=== PATIENT | female | born 1945 | race Caucasian/White ===

== ENCOUNTER 2017-02-16 10:11 | Day surgery (SDC) | payer OTHER ==
[2017-02-16 09:10] VITALS: BMI 28.3
[2017-02-16] MEDS ORDERED: PROPOFOL 20 ML ONE ×2 (11:17)
[2017-02-16 12:09] VITALS: TEMP 97.5
[2017-02-16 12:48] VITALS: BP 123/60; PULSE 57
--- NOTE | 2017-02-21 11:19 | PATH ---
Surgical Pathology Report Patient Name: ZINA APONTE [facility]. Rec. #: [id number] /Age/Gender: 1945 (Age: 71) / F Account: [id number] Location: ASU-ENDOSCOPY Taken: 02/16/2017 Received: 02/16/2017 Reported: 02/19/2017 Physicians: Sanam Kent M.D. Specimen(s) Received A: BX RECTAL POLYP B: SIGMOID POLYPS C: BX ANASTOMOSIS Clinical History Colon adenoma surveillance Patent right hemicolectomy anastomosis, diverticulosis, polyps Final Diagnosis A. COLON, RECTUM, BIOPSY: HYPERPLASTIC POLYP. B. COLON, SIGMOID, BIOPSY: HYPERPLASTIC POLYP. C. COLON, ANASTOMOSIS, BIOPSY: COLONIC MUCOSA WITH NO PATHOLOGIC CHANGES. NO ADENOMATOUS OR HYPERPLASTIC CHANGES IDENTIFIED. Comment: Also see prior specimens [id number] and [id number]. Electronically Signed Conrad Oliver M.D. Gross Description A. Received in formalin, labeled "biopsy rectal polyp" is a miller, irregular portion of soft tissue measuring 0.1 cm. in greatest dimension. The specimen is submitted in toto in one cassette. B. Received in formalin, labeled "sigmoid polyps" are 4 miller, irregular portions of soft tissue ranging from 0.2-0.4 cm. in greatest dimension. The specimens are submitted in toto in one cassette. C. Received in formalin, labeled "biopsy anastomosis" are 3 miller, irregular portions of soft tissue ranging from 0.3-0.4 cm. in greatest dimension. The specimens are submitted in toto in one cassette. 02/16/201702/16/2017
== END 2017-02-16 14:15 | disposition home or self-care (01) ==
LOC: JASU-ENDO 10:11
PROVIDERS: ATTEND Internal Medicine Gastroenterology
PROC: 0DBP8ZX Excision of Rectum, Via Natural or Artificial Opening Endoscopic, Diagnostic (ICD-10-PCS; 2017-02-16)
PROC: 0DBN8ZX Excision of Sigmoid Colon, Via Natural or Artificial Opening Endoscopic, Diagnostic (ICD-10-PCS; principal; 2017-02-16 11:00)
DX: Z12.11 Encounter for screening for malignant neoplasm of colon (principal); Z85.038 Personal history of other malignant neoplasm of large intestine; K62.1 Rectal polyp; D12.5 Benign neoplasm of sigmoid colon; K57.30 Diverticulosis of large intestine without perforation or abscess without bleeding; K64.8 Other hemorrhoids
CPT/HCPCS: 88305-TC

== ENCOUNTER 2017-09-14 09:59 | Inpatient (IN) | payer OTHER ==
--- NOTE | 2017-09-14 10:49 | PDOC ---
History of Present Illness - General Chief Complaint: Pain Stated Complaint: Abd pain Time Seen by Provider: 09/14/17 10:21 - History of Present Illness Initial Comments: 09/14/17 10:50 71 yo F with h/o HTN, HLD, COPD and cecal obstruction/mass s/p hemicolectomy () who presents with RLQ abdominal pain. Patient reports acute onset RLQ abdominal pain yesterday morning. Pain is sharp, unremitting, worsening, with periumbilical, and right flank radiation. Pain worse with pressure and movement. Denies postprandial pain, or decreased appetitie. Last PO intake this AM at 0830 oatmeal, and orange juice. Denies analgesia use. Denies fevers/chills , N/V, diarrhea/constipation, BPR, hematuria, dysuria, urinary complaints, chest pain, SOB, lightheadedness, weakness. Recent U/S right complex renal cyst 8 mm ( 08/08). Past History - Past Medical History Allergies/Adverse Reactions: Allergies Allergy/AdvReac Type Severity Reaction Status Date / Time Sulfa (Sulfonamide Allergy Verified 09/14/17 10:05 Antibiotics) rosuvastatin calcium AdvReac Intermediate Verified 09/14/17 10:05 [From Crestor] atorvastatin calcium AdvReac Verified 09/14/17 10:05 [From Lipitor] Home Medications: Ambulatory Orders Arformoterol Tartrate [Brovana -] 1 amp NEB BID #60 amp 12/17/15 Lactobacillus Acidophilus [Bacid -] 1 tab PO DAILY #30 tab 12/17/15 Cholecalciferol (Vitamin D3) [D3-2000] 2,000 unit PO DAILY 02/03/16 Prednisone [Deltasone -] 5 mg PO DAILY tablet 02/22/16 Amlodipine Besylate [Norvasc -] 10 mg PO DAILY 02/15/17 Methimazole 2.5 mg PO DAILY 02/15/17 Olmesartan Medoxomil 40 mg PO DAILY 02/15/17 Cancer: Yes (COLON) COPD: Yes HTN: Yes Hypercholesterolemia: Yes Seizures: Yes Thyroid Disease: Yes (HYPER) - Surgical History Abdominal Surgery: Yes (LAPAROSCOPIC RT COLON RESECTION 02/13) Orthopedic Surgery: Yes (L ankle plate/pins inserted) - Suicide/Smoking/Psychosocial Hx Smoking History: Former smoker Have you smoked in the past 12 months: No If you are a former smoker, when did you quit?: 2000 Information on smoking cessation initiated: Yes Hx Alcohol Use: No Drug/Substance Use Hx: No Substance Use Type: None Hx Substance Use Treatment: No Review of Systems - Review of Systems Comments:: 09/14/17 11:03 GENERAL/CONSTITUTIONAL: No fever or chills. No weakness. HEAD, EYES, EARS, NOSE AND THROAT: No change in vision. No ear pain or discharge. No sore throat.- CARDIOVASCULAR: No chest pain or shortness of breath RESPIRATORY: No cough, wheezing, or hemoptysis. GASTROINTESTINAL: + Abdominal pain. No nausea, vomiting, diarrhea or constipation. GENITOURINARY: No dysuria, frequency, or change in urination. MUSCULOSKELETAL: No joint or muscle swelling or pain. No neck or back pain. SKIN: No rash NEUROLOGIC: No headache, vertigo, loss of consciousness, or change in strength/ sensation. ENDOCRINE: No increased thirst. No abnormal weight change HEMATOLOGIC/LYMPHATIC: No anemia, easy bleeding, or history of blood clots. ALLERGIC/IMMUNOLOGIC: No hives or skin allergy. *Physical Exam - Vital Signs Last Vital Signs Temp Pulse Resp BP Pulse Ox 98.1 F 95 H 19 128/77 92 L 09/14/17 10:02 09/14/17 10:02 09/14/17 10:02 09/14/17 10:02 09/14/17 10:02 - Physical Exam Comments: 09/14/17 11:04 GENERAL: Awake, alert, and fully oriented, in no acute distress HEAD: No signs of trauma, normocephalic, atraumatic EYES: PERRLA, EOMI, sclera anicteric, conjunctiva clear ENT: Hearing grossly normal, nares patent, oropharynx clear without exudates. Moist mucosa NECK: Normal ROM, no JVD, or masses LUNGS: No distress, speaks full sentences, clear to auscultation bilaterally HEART: Regular rate and rhythm, normal S1 and S2, no murmurs, rubs or gallops, peripheral pulses normal and equal bilaterally. ABDOMEN: RLQ > periumbilical ttp. + Right CVA ttp. NDS, normoactive bowel sounds. No guarding, no rebound. No masses. EXTREMITIES : Normal inspection, Normal range of motion, no edema. No clubbing or cyanosis. SKIN: Warm, Dry, normal turgor, no rashes or lesions noted. Heart Score/ECG Review - History History: Slightly suspicious - Electrocardiogram EKG: Normal - ST and T Early Repolarization: No Non Specific ST-T Wave changes: No Flattened T Waves: No Prolonged Q-T Interval: No - ECG Impressions Normal ECG: Yes Non-specific ST Elevation: No Ischemic Changes: No Torsades quentin Pointes: No WPW: No ED Treatment Course - LABORATORY CBC & Chemistry Diagram: 09/14/17 11:00 09/14/17 11:00 Medical Decision Making - Medical Decision Making 09/14/17 11:05 71 yo F with h/o HTN, HLD, COPD and cecal obstruction/mass s/p hemicolectomy () who presents with acute onset sharp, unremitting, RLQ abdominal pain with periumbilical, and right flank radiation beginning yesterday morning.Pain worse with pressure and movement. Denies postprandial pain, or decreased appetite. Denies fevers/chills, N/V, diarrhea/constipation, BPR, hematuria, dysuria, urinary complaints, chest pain, SOB, lightheadedness, weakness. Physical exam reveals marked RLQ > periumbilical ttp and R sided CVA ttp. Hemodynamically stable. Patient with suspected appendicitis vs. bowel obstruction. Will also consider nephrolithiasis based on R sided CVA ttp. ED Course: CBC, CMP, Lipase, UA, PT/INR EKG Morphine 2mg, Zofran 4 mg, NS [address] AP W/CON RUQ U/S 09/14/17 12:18 EKG: NSR with absent MIRANDA, STD, or TWI. 09/14/17 12:19 WBC: 20.1 Cr/BUN: 1.1/19 CT AP: Thick walled and irregular anastamosis sight around R hemicolectomy sight. Inflammatory changes present in adjacent mesenteric fat. Inflammatory process vs. malignancy. 09/14/17 14:37 Called and left message for [facility] ( Dr. Dawson) answering service. 09/14/17 15:10 Called and left message for DR. Chris 09/14/17 15:[address] Faust. Will admit to [facility]. Dr. Ayala will come evaluate. *DC/Admit/Observation/Transfer Diagnosis at time of Disposition: Colitis - Referrals Referrals: Jordy Chris MD [Primary Care Provider] - - Patient Instructions - Post Discharge Activity
[2017-09-14] MEDS ORDERED: ONDANSETRON 4 MG/2 ML VIAL IVPUSH ONE (10:52)
[2017-09-14] MEDS ORDERED: SODIUM CHLORIDE 1,000 ML IV STA (10:52)
[2017-09-14] MEDS ORDERED: morphine CARPU-JECT 2 MG/1 ML DISP.SYRIN IVPUSH ONE (10:52)
[2017-09-14] MEDS ORDERED: ONDANSETRON 4 MG/2 ML VIAL ONE (11:03)
[2017-09-14] MEDS ORDERED: morphine SULFATE 4 MG/ML VIAL ONE (11:03)
[2017-09-14 11:49] LABS: BASO % 0.1 % (0-2.0); EOS % 0.2 % (0-4.5); MCH 30.4 pg (25.7-33.7); MCHC 32.8 g/dl (32.0-36.0); MEAN CELL VOLUME 92.7 fl (80-96); MEAN PLT VOLUME 9.6 fl (7.5-11.1); NEUT % 89.8 % (42.8-82.8); PLATELET COUNT 252 K/MM3 (134-434); RDW 13.8 % (11.6-15.6)
[2017-09-14 12:15] LABS: ALBUMIN 4.2 g/dl (3.4-5.0); ALK PHOS 66 U/L (45-117); ANION GAP 9 (8-16); BILIRUBIN,TOTAL 0.9 mg/dL (0.2-1.0); CALCIUM 9.4 mg/dL (8.5-10.1); CO2 26 mmol/L (21-32); CREATININE 1.1 mg/dL (0.55-1.02); GLUCOSE,RANDOM 102 mg/dL (74-106); SGOT/AST 13 U/L (15-37); SGPT/ALT 23 U/L (12-78); TOT PROT 7.5 g/dl (6.4-8.2)
[2017-09-14 12:20] LABS: INR 1.19 (0.82-1.09); PROTHROMBIN TIME (PATIENT) 13.5 SEC (9.98-11.88)
--- NOTE | 2017-09-14 12:24 | PDOC ---
Attending Attestation - Resident Resident Name: Dov Lam - ED Attending Attestation I have performed the following: I have examined & evaluated the patient, The case was reviewed & discussed with the resident, I agree w/resident's findings & plan, Exceptions are as noted - HPI HPI: 09/14/17 12:22 71 F with h/o HTN, HLD, COPD and cecal obstruction/mass s/p hemicolectomy (02/10), gallstones, presenting to ER with R sided abdominal pain x 1 day. Pt states pain began this morning. Was associated with nausea but no vomiting. Denies diarrhea. Last BM was this morning and normal. Denies F/C. Denies CP/ SOB. Denies dysuria. Pt states that she has known gallstones but no intervention was done due to her being symptomatic. - Physicial Exam PE: 09/14/17 12:23 "GENERAL: Awake, alert, and fully oriented, in no acute distress HEAD: No signs of trauma EYES: PERRLA, EOMI, sclera anicteric, conjunctiva clear ENT: Auricles normal inspection, hearing grossly normal, nares patent, oropharynx clear without exudates. Moist mucosa NECK: Nontender, no stepoffs, Normal ROM, supple, no lymphadenopathy, JVD, or masses LUNGS: Breath sounds equal, clear to auscultation bilaterally. No wheezes, and no crackles HEART: Regular rate and rhythm, normal S1 and S2, no murmurs, rubs or gallops ABDOMEN: +RLQ tenderness, + R CVAT, nondistended EXTREMITIES: Normal range of motion, no edema. No clubbing or cyanosis. No cords, erythema, or tenderness NEUROLOGICAL: Cranial nerves II through XII intact. 5/5 strength and sensation in all extremities, Normal speech, normal gait SKIN: Warm, Dry, normal turgor, no rashes or lesions noted. " - Medical Decision Making 09/14/17 12:23 71 F with h/o gallstones, colon CA s/p hemicolectomy, presenting to ER with R sided abdominal pain. Concerning for possible obstructive process, though exam with no distention. Pt also has known h/o gallstones. Possible acute edie. - Labs - RUQ sono - CT abdomen/pelvis
[2017-09-14] MEDS ORDERED: ACETAMINOPHEN 325 MG TABLET (FP) PO PRN (15:33)
--- NOTE | 2017-09-14 15:47 | HP ---
Admitting History and Physical - Primary Care Physician PCP: Jordy Chris - Admission Chief Complaint: I'm hurting History of Present Illness: Ms. Valdes is a very pleasant 71 year old female who comes in with sudden onset abdominal pain. She says she was doing well until last night when she developed sudden onset RLQ abdominal pain. She says it radiates to her back. It is a sharp pain that is worsened with movement. She says at its worst it was a 25/ 10. She says it is constant. It is not exacerbated by eating or drinking and she has a normal appetite. She had a slight amount of nausea but no vomiting. She is having normal bowel movements, her last bowel movement was this morning and it was normal in color and quantity. Aside from the pain she is without complaint. She denies fevers, chills, lightheadedness, dizziness, passing out, chest pain, shortness of breath, diarrhea, constipation, difficulty or pain on urination, or swelling. She has received morphine in the ED and she says her pain is now a 4/10. History Source: Patient Limitations to Obtaining History: No Limitations - Past Medical History Cardiovascular: Yes: HTN, Hyperlipdemia Pulmonary: Yes: COPD, Pneumonia Gastrointestinal: Yes: Constipation, Other (loss appetite) Hepatobiliary: Yes: Cholelithiasis Psych: Yes: Anxiety - Past Surgical History Past Surgical History: Yes: Colectomy (partial, with anastamosis), Tonsillectomy (left malleolar fracture surgery with hardware) - Smoking History Smoking history: Former smoker Have you smoked in the past 12 months: No If you are a former smoker, when did you quit?: 2000 - Alcohol/Substance Use Hx Alcohol Use: No History of Substance Use: reports: None - Social History ADL: Independent Occupation: retired hairdresser History of Recent Travel: No Home Medications - Allergies Allergies/Adverse Reactions: Allergies Allergy/AdvReac Type Severity Reaction Status Date / Time Sulfa (Sulfonamide Allergy Verified 09/14/17 10:05 Antibiotics) rosuvastatin calcium AdvReac Intermediate Verified 09/14/17 10:05 [From Crestor] atorvastatin calcium AdvReac Verified 09/14/17 10:05 [From Lipitor] - Home Medications Home Medications: Ambulatory Orders Arformoterol Tartrate [Brovana -] 1 amp NEB BID #60 amp 12/17/15 Lactobacillus Acidophilus [Bacid -] 1 tab PO DAILY #30 tab 12/17/15 Cholecalciferol (Vitamin D3) [D3-2000] 2,000 unit PO DAILY 02/03/16 Prednisone [Deltasone -] 5 mg PO DAILY tablet 02/22/16 Amlodipine Besylate [Norvasc -] 10 mg PO DAILY 02/15/17 Methimazole 2.5 mg PO DAILY 02/15/17 Olmesartan Medoxomil 40 mg PO DAILY 02/15/17 Family Disease History - Family Disease History Family Disease History: CA: Father ( 81 bladder cancer), Mother (dementia, 71 uterine cancer ), Other: Mother Review of Systems Findings/Remarks: Full review of systems obtained, as per HPI and otherwise negative. Physical Examination Vital Signs: Vital Signs Temperature 36.7 C 09/14/17 10:02 Pulse Rate 95 H 09/14/17 10:02 Respiratory Rate 19 09/14/17 10:02 Blood Pressure 128/77 09/14/17 10:02 O2 Sat by Pulse Oximetry (%) 92 L 09/14/17 10:02 Constitutional: Yes: Well Nourished, No Distress, Calm Eyes: Yes: Conjunctiva Clear, EOM Intact, PERRL HENT: Yes: Atraumatic, Normocephalic Cardiovascular: Yes: Regular Rate and Rhythm, Other. No: Gallop, Murmur, Rub Respiratory: Yes: Regular. No: Rales, Rhonchi, Wheezes Gastrointestinal: Yes: Soft, Hypoactive Bowel Sounds, Tenderness (RLQ). No: Distention Extremities: Yes: WNL Edema: No Labs: CBC, BMP 09/14/17 11:00 09/14/17 11:00 Imaging - Results Cat Scan: Report Reviewed, Image Reviewed Ultrasound: Report Reviewed Problem List - Problems (1) Chronic inflammation of colon Assessment/Plan: -patient presents with acute abdominal pain onset and found to have inflammation at anastomosis site -concerning for recurrence of cancer, however other inflammatory process is possible as well -consult GI and surgery -not obstructed but patient at high risk for obstruction, needs inpatient admission and evaluation -clear liquid diet -stool softeners Code(s): K52.9 - NONINFECTIVE GASTROENTERITIS AND COLITIS, UNSPECIFIED (2) Colitis Assessment/Plan: -with inflammation and leukocytosis -while no other signs of sepsis, concerning since presentation of pain is acute -admit to the hospital -IVF -clear liquid diet -check blood cultures -levaquin and flagyl -monitor leukocytosis -patient is on chronic low dose steroids but would not expect leukocytosis of 20 ,000 Code(s): K52.9 - NONINFECTIVE GASTROENTERITIS AND COLITIS, UNSPECIFIED (3) COPD (chronic obstructive pulmonary disease) Assessment/Plan: -not in exacerbation -continue home regimen including low dose prednisone and brovana Code(s): J44.9 - CHRONIC OBSTRUCTIVE PULMONARY DISEASE, UNSPECIFIED Qualifiers: COPD type: chronic bronchitis (4) Hypertension Assessment/Plan: -continue diovan and norvasc -controlled Code(s): I10 - ESSENTIAL (PRIMARY) HYPERTENSION (5) Hyperthyroidism Assessment/Plan: -continue tapazole -on 2.5mg bid Code(s): E05.90 - THYROTOXICOSIS, UNSP WITHOUT THYROTOXIC CRISIS OR STORM
[2017-09-14] MEDS: SODIUM CHLORIDE 1,000 ML IV SCH (16:04)
[2017-09-14] MEDS: LEVOFLOXACIN 500 MG IVPB 500 MG/100 ML BAG IVPB SCH (16:04)
[2017-09-14] MEDS ORDERED: ARFORMOTEROL TARTRATE 15 MCG/2 ML VIAL NEB SCH ×2 (16:15→22:00)
[2017-09-14] MEDS: METRONIDAZOLE 500 MG PREMIXED 500 MG/100 ML MG IVPB SCH (17:00)
[2017-09-14 18:54] VITALS: BMI 29.2
[2017-09-14] MEDS: morphine SULFATE 4 MG/ML VIAL IVPUSH PRN (21:14)
[2017-09-14] MEDS: DOCUSATE SODIUM 100 MG CAPSULE (FP) PO SCH (21:14)
[2017-09-15] MEDS: ARFORMOTEROL TARTRATE 15 MCG/2 ML VIAL NEB SCH ×3 (00:30→23:00)
[2017-09-15] MEDS: METRONIDAZOLE 500 MG PREMIXED 500 MG/100 ML MG IVPB SCH ×2 (02:33→09:15)
[2017-09-15] MEDS: SODIUM CHLORIDE 1,000 ML IV SCH ×2 (05:19→21:09)
[2017-09-15 08:08] LABS: BASO % 0.3 % (0-2.0); EOS % 0.9 % (0-4.5); MCH 30.7 pg (25.7-33.7); MCHC 32.9 g/dl (32.0-36.0); MEAN CELL VOLUME 93.5 fl (80-96); MEAN PLT VOLUME 8.6 fl (7.5-11.1); NEUT % 76.5 % (42.8-82.8); PLATELET COUNT 174 K/MM3 (134-434); RDW 13.8 % (11.6-15.6)
[2017-09-15 08:38] LABS: ANION GAP 7 (8-16); CO2 25 mmol/L (21-32); GLUCOSE,RANDOM 85 mg/dL (74-106); MAGNESIUM 2.3 mg/dL (1.8-2.4); PHOSPHOROUS 2.5 mg/dL (2.5-4.9)
[2017-09-15] MEDS: VALSARTAN 160 MG TABLET (UD) PO SCH (09:15)
[2017-09-15] MEDS: CHOLECALCIFEROL (VITAMIN D3) 1,000 UNIT TABLET (FP) PO SCH (09:16)
[2017-09-15] MEDS: DOCUSATE SODIUM 100 MG CAPSULE (FP) PO SCH ×3 (09:16→21:11)
[2017-09-15] MEDS: LACTOBACILLUS ACIDOPHILUS 1 EACH TAB (FP) PO SCH (09:16)
[2017-09-15] MEDS: predniSONE 5 MG TABLET (UD) PO SCH (09:16)
[2017-09-15] MEDS: METHIMAZOLE 5 MG TABLET (FP) PO SCH (09:16)
[2017-09-15] MEDS: morphine SULFATE 4 MG/ML VIAL IVPUSH PRN ×2 (09:17→23:09)
--- NOTE | 2017-09-15 09:47 | PN ---
Progress Note (short form) - Note Progress Note: surgery pt seen and examined yesterday. ct reviewed. history right colectomy for benign disease. now with abd pain and sheri-anastamosis inflammation on ct. no obstruction. no perforation. abd- soft, minimal tenderness Plan- doubt mechanical problem. treat colitis per gi. for poss colonoscopy when better. no acute surgical intervention.
[2017-09-15] MEDS: amLODIPine BESYLATE 10 MG TABLET (FP) PO SCH (10:21)
[2017-09-15] MEDS: LEVOFLOXACIN 500 MG IVPB 500 MG/100 ML BAG IVPB SCH (10:21)
--- NOTE | 2017-09-15 11:18 | CON.GI ---
Consult Consult Specialty:: GI: Dr. Forman covering for Dr. Kent Referred by:: Dr. Faust Reason for Consultation:: Abdominal pain - History of Present Illness Chief Complaint: "I was having pain from yesterday" History of Present Illness: 71F admitted to [facility] for evaluation of abdominal pain. She states being in [place] up until two nights ago, when she began to develop sharp right sided abdominal pain that radiated to the right flank. The pain was constant and became progressively more intense through the night. She waited to come to the ER yesterday morning. There was no associated nausea, vomiting, fevers/chills, food fear, rectal bleeding, diarrhea. She denied any similar episodes in the past. In the ER, she was noted to be afebrile with a WBC of 20K ( predominantly neutrophils). A CT scan was performed revealing focal inflammatory changes in the proximal colon at the proximity of the ileocolonic anastamosis, relatively unchanged liver cysts and gallstones without evidence of acute cholecystitis (I reviewed the CT scan with Dr. Omalley this morning) . Ms. Valdes has a history of multiple colon polyps that were discovered during her first colonoscopy in [address] Kent. One of the rectal polyps removed contained a CIS and there was a large 7cm cecal polyp. The large cecal polyp led to Ms. Valdes having a right hemicolectomy and pathology report from the surgery revealed it to be a tubular adenoma without carcinoma. The margins of the surgery were free of adenomatous changes. A follow-up colonoscopy 02/[address] Kent revealed diverticulosis and hyperplastic polyps. Biopsies of the anastamosis were unrevealing. Ms. Valdes currently states that while her pain was initially a "20 out of 10" yesterday, It is a "5-6 out of 10 " today. - History Source History Provided By: Patient, Medical Record - Past Medical History Cardio/Vascular: Yes: HTN, Hyperlipdemia Pulmonary: Yes: COPD, Pneumonia Gastrointestinal: Yes: Constipation, Diverticulosis, Other (Colon polyps, 1 rectal polyp with CIS) Hepatobiliary: Yes: Cholelithiasis Psych: Yes: Anxiety - Past Surgical History Past Surgical History: Yes: Colectomy (right hemocolectomy 2016), Tonsillectomy (left malleolar fracture surgery with hardware) Additional Surgical History: left ankle fracture repair - Alcohol/Substance Use Hx Alcohol Use: Yes (Rare) History of Substance Use: reports: None - Smoking History Smoking history: Former smoker Have you smoked in the past 12 months: No If you are a former smoker, when did you quit?: 2000 - Social History Usual Living Arrangement: Other () ADL: Independent Occupation: retired hairdresser [facility] of : [facility] History of Recent Travel: No Home Medications - Allergies Allergies/Adverse Reactions: Allergies Allergy/AdvReac Type Severity Reaction Status Date / Time Sulfa (Sulfonamide Allergy Verified 09/14/17 10:05 Antibiotics) rosuvastatin calcium AdvReac Intermediate Verified 09/14/17 10:05 [From Crestor] atorvastatin calcium AdvReac Verified 09/14/17 10:05 [From Lipitor] - Home Medications Home Medications: Ambulatory Orders Arformoterol Tartrate [Brovana -] 1 amp NEB BID #60 amp 12/17/15 Lactobacillus Acidophilus [Bacid -] 1 tab PO DAILY #30 tab 12/17/15 Cholecalciferol (Vitamin D3) [D3-2000] 2,000 unit PO DAILY 02/03/16 Prednisone [Deltasone -] 5 mg PO DAILY tablet 02/22/16 Amlodipine Besylate [Norvasc -] 10 mg PO DAILY 02/15/17 Methimazole 2.5 mg PO DAILY 02/15/17 Olmesartan Medoxomil 40 mg PO DAILY 02/15/17 Family Disease History - Family Disease History Family Disease History: CA: Father ( 81 bladder cancer), Mother (dementia, 71 uterine cancer ), Other: Mother Other Family History: No siblings, No children. No family history of colorectal cancer or other GI malignancy Review of Systems - Review of Systems Constitutional: denies: Chills, Fever, Unintentional Wgt. Loss Cardiovascular: denies: Chest Pain Respiratory: reports: SOB (baseline at times) Gastrointestinal: reports: Abdominal Pain, Constipation (Chronic). denies: Diarrhea, Melena, Rectal Bleeding, Vomiting, Vomiting Blood Physical Exam-GI Vital Signs: Vital Signs Temperature 98.5 F 09/15/17 05:00 Pulse Rate 66 09/15/17 05:00 Respiratory Rate 18 09/15/17 05:00 Blood Pressure 120/62 09/15/17 05:00 O2 Sat by Pulse Oximetry (%) 97 09/14/17 21:00 Constitutional: Yes: Calm Eyes: Yes: Sclera Icterus Cardiovascular: Yes: Regular Rate and Rhythm. No: Murmur Respiratory: Yes: CTA Bilaterally Gastrointestinal Inspection: Yes: Scars (periumbilical surgical scar) ...Auscultate: Yes: Normoactive Bowel Sounds ...Palpate: Yes: Guarding (voluntary), Tenderness (TTP throughout right abdomen. More focused in mid right abdomen). No: Hepatomegaly, Splenomegaly ...Percussion: No: Tympanitic ...Rectal Exam: Yes: Guaiac Negative (Light brown stool in rectal vault, guaiac negative) Edema: No (No LE edema) Neurological: Yes: Alert, Oriented Labs: CBC, BMP 09/15/17 07:15 09/15/17 07:15 INR, PTT INR 1.19 (0.82-1.09) H 09/14/17 11:00 Hepatic Panel Total Bilirubin 0.9 mg/dL (0.2-1.0) 09/14/17 11:00 AST 13 U/L (15-37) L D 09/14/17 11:00 ALT 23 U/L (12-78) D 09/14/17 11:00 Alkaline Phosphatase 66 U/L (45-117) 09/14/17 11:00 Albumin 4.2 g/dl (3.4-5.0) 09/14/17 11:00 Imaging - Results Cat Scan: Report Reviewed, Image Reviewed (Reviewed w/ Dr. Omalley this morning.) Ultrasound: Report Reviewed Problem List - Problems (1) Colitis Assessment/Plan: Acute progressive right sided abdominal pain: With focal CT scan findings and acuity of onset, along with previous colonoscopy findings and response to conservative maganagement/IV Abx, the possibility of an acute diverticulitis would need to be higher in the differential. Odd presentation for ischemic colitis and there was no malignancy noted on initial hemicolectomy. Recent colonoscopy revealed a normal appearing anstamosis as well. Plan for now would be: NPO Continuing IV Abx. When pain subsides, would advance to clear liquids in AM and will need outpatient follow-up with Dr. Kent as an outpatient to discuss possible follow-up colonoscopy Daily labs, CBC/BMP/CRP Appreciate surgical input Code(s): K52.9 - NONINFECTIVE GASTROENTERITIS AND COLITIS, UNSPECIFIED
[2017-09-15] MEDS: POLYETHYLENE GLYCOL 3350 119 GM BTL PO SCH (11:24)
--- NOTE | 2017-09-15 13:33 | PN ---
Progress Note, Physician Chief Complaint: Less abdominal pain denies any nausea or vomiting History of Present Illness: 71 yrs old F with H/O COPD, Hyperthyroidism, Rt Hemicolectomy, HTN present with acute collitis with elevated TWBC , evaluated by GI on IV abx. - Current Medication List Current Medications: Active Medications Acetaminophen (Tylenol -) 650 mg PO Q4H PRN PRN Reason: FEVER OR PAIN Amlodipine Besylate (Norvasc -) 10 mg PO DAILY [facility] Last Admin: 09/15/17 10:21 Dose: 10 mg Arformoterol Tartrate (Brovana (Restricted To Pulmonology/Resp) -) 1 amp NEB BID [facility] Last Admin: 09/15/17 09:45 Dose: 1 amp Cholecalciferol (Vitamin D3 -) 2,000 unit PO DAILY [facility] Last Admin: 09/15/17 09:16 Dose: 2,000 unit Docusate Sodium (Colace -) 100 mg PO BID [facility] Last Admin: 09/15/17 09:16 Dose: 100 mg Sodium Chloride (Normal Saline -) 1,000 mls @ 75 mls/hr IV ASDIR [facility] Last Admin: 09/15/17 05:19 Dose: 75 mls/hr Metronidazole (Flagyl 500mg Premixed Ivpb -) 500 mg in 100 mls @ 100 mls/hr IVPB Q8H-IV [facility] Last Admin: 09/15/17 09:15 Dose: 100 mls/hr Levofloxacin (Levaquin 500 Mg Premixed Ivpb -) 500 mg in 100 mls @ 100 mls/hr IVPB DAILY [facility] Last Admin: 09/15/17 10:21 Dose: 100 mls/hr Lactobacillus Acidophilus (Bacid -) 1 tab PO DAILY [facility] Last Admin: 09/15/17 09:16 Dose: 1 tab Methimazole (Tapazole -) 2.5 mg PO DAILY [facility] Last Admin: 09/15/17 09:16 Dose: 2.5 mg Morphine Sulfate (Morphine Sulfate) 2 mg IVPUSH Q4H PRN PRN Reason: PAIN LEVEL 6-10 Last Admin: 09/15/17 09:17 Dose: 2 mg Ondansetron HCl (Zofran Injection) 4 mg IVPUSH Q6H PRN PRN Reason: NAUSEA Polyethylene Glycol (Miralax (For Daily Use) -) 17 gm PO DAILY [facility] Last Admin: 09/15/17 11:24 Dose: 17 gm Prednisone (Deltasone -) 5 mg PO DAILY [facility] Last Admin: 09/15/17 09:16 Dose: 5 mg Valsartan (Diovan -) 320 mg PO DAILY [facility] Last Admin: 09/15/17 09:15 Dose: 320 mg - Objective Vital Signs: Vital Signs Temperature 98.5 F 09/15/17 05:00 Pulse Rate 66 09/15/17 05:00 Respiratory Rate 18 09/15/17 05:00 Blood Pressure 120/62 09/15/17 05:00 O2 Sat by Pulse Oximetry (%) 97 09/14/17 21:00 Comfortable less abd pain, no nausea, vomiting or diarrhea. HEENT: Mm moist no anaemia, PERRLA EOMI NECK; No JVSD No Bruit CHEST: CTA B/L CVS: S1S2 R no m/g/r ABD: Obese, mild mild tenderness Rt LQ BS + EXT: Trace edema feet [employer]: Non focal Labs: CBC, BMP 09/15/17 07:15 09/15/17 07:15 INR, PTT INR 1.19 (0.82-1.09) H 09/14/17 11:00 Problem List - Problems (1) Colitis Assessment/Plan: cont pain meds IV Levofloxacin , evaluated by GI consult Code(s): K52.9 - NONINFECTIVE GASTROENTERITIS AND COLITIS, UNSPECIFIED (2) Anxiety Assessment/Plan: Cont all home medications. Code(s): F41.9 - ANXIETY DISORDER, UNSPECIFIED (3) H/O right hemicolectomy Assessment/Plan: No active issue Ct scan shows normal anastomotic site. Code(s): Z90.49 - ACQUIRED ABSENCE OF OTHER SPECIFIED PARTS OF DIGESTIVE TRACT (4) Leukocytosis Code(s): D72.829 - ELEVATED WHITE BLOOD CELL COUNT, UNSPECIFIED (5) COPD (chronic obstructive pulmonary disease) Assessment/Plan: Stable no c/o SOB cont Home meds. Code(s): J44.9 - CHRONIC OBSTRUCTIVE PULMONARY DISEASE, UNSPECIFIED Qualifiers: COPD type: chronic bronchitis (6) Hyperkalemia Assessment/Plan: Recived Kayxelate F/U BMP in am Code(s): E87.5 - HYPERKALEMIA (7) Hyperthyroidism Assessment/Plan: cont home meds at present symptomatic. Code(s): E05.90 - THYROTOXICOSIS, UNSP WITHOUT THYROTOXIC CRISIS OR STORM
[2017-09-16] MEDS: METRONIDAZOLE 500 MG PREMIXED 500 MG/100 ML MG IVPB SCH ×4 (01:46→17:54)
[2017-09-16 08:59] LABS: BASO % 0.3 % (0-2.0); EOS % 2.3 % (0-4.5); MCH 30.7 pg (25.7-33.7); MCHC 32.8 g/dl (32.0-36.0); MEAN CELL VOLUME 93.5 fl (80-96); MEAN PLT VOLUME 9.2 fl (7.5-11.1); NEUT % 71.6 % (42.8-82.8); PLATELET COUNT 183 K/MM3 (134-434); RDW 13.8 % (11.6-15.6); WHITE BLOOD COUNT 9.7 K/mm3 (4.0-10.0)
[2017-09-16] MEDS: ARFORMOTEROL TARTRATE 15 MCG/2 ML VIAL NEB SCH ×2 (09:15→22:10)
[2017-09-16 09:35] LABS: C-REACTIVE PROTEIN 4.7 MG/DL (0.00-0.3)
[2017-09-16] MEDS: amLODIPine BESYLATE 10 MG TABLET (FP) PO SCH (09:38)
[2017-09-16] MEDS: VALSARTAN 160 MG TABLET (UD) PO SCH (09:38)
[2017-09-16] MEDS: METHIMAZOLE 5 MG TABLET (FP) PO SCH (09:38)
[2017-09-16] MEDS: predniSONE 5 MG TABLET (UD) PO SCH (09:38)
[2017-09-16] MEDS: LACTOBACILLUS ACIDOPHILUS 1 EACH TAB (FP) PO SCH (09:38)
[2017-09-16] MEDS: CHOLECALCIFEROL (VITAMIN D3) 1,000 UNIT TABLET (FP) PO SCH (09:38)
[2017-09-16 09:40] LABS: ANION GAP 7 (8-16); CALCIUM 8.5 mg/dL (8.5-10.1); CO2 26 mmol/L (21-32); CREATININE 0.9 mg/dL (0.55-1.02); GLUCOSE,RANDOM 118 mg/dL (74-106)
[2017-09-16] MEDS: POLYETHYLENE GLYCOL 3350 119 GM BTL PO SCH (10:05)
[2017-09-16] MEDS: DOCUSATE SODIUM 100 MG CAPSULE (FP) PO SCH ×2 (10:05→21:02)
[2017-09-16] MEDS: LEVOFLOXACIN 500 MG IVPB 500 MG/100 ML BAG IVPB SCH (10:53)
[2017-09-16 11:13] LABS: URINE APPEARANCE CLEAR; URINE BILIRUBIN NEGATIVE (NEGATIVE); URINE BLOOD NEGATIVE (NEGATIVE); URINE COLOR STRAW; URINE GLUCOSE (UA) NEGATIVE (NEGATIVE); URINE KETONE NEGATIVE (NEGATIVE); URINE LEUK ESTERASE TRACE (NEGATIVE); URINE NITRITE NEGATIVE (NEGATIVE); URINE PROTEIN NEGATIVE (NEGATIVE); URINE UROBILINOGEN NEGATIVE mg/dL (0.2-1.0)
[2017-09-16] MEDS: ONDANSETRON 4 MG/2 ML VIAL IVPUSH PRN (11:33)
--- NOTE | 2017-09-16 11:42 | PN ---
GI Progress Note Subjective: No acute events More frequent soft BM's from yesterday. Miralax and colace have been held by nurse Abdominal pain much improved - Objective Vital Signs: Vital Signs Temperature 97.6 F 09/16/17 09:20 Pulse Rate 76 09/16/17 09:20 Respiratory Rate 22 09/16/17 09:20 Blood Pressure 124/64 09/16/17 09:20 O2 Sat by Pulse Oximetry (%) 97 09/15/17 21:00 Constitutional: Calm Eyes: No: Sclera Icterus Cardiovascular: Yes: Regular Rate and Rhythm Respiratory: Yes: CTA Bilaterally Gastrointestinal Inspection: No: Distention ...Auscultate: Yes: Normoactive Bowel Sounds ...Palpate: Yes: Soft, Tenderness (Improved TTP right abdomen). No: Guarding, Tenderness, Rebound ...Percussion: No: Tympanitic Edema: Yes (B/L LE edema) Neurological: Yes: Alert, Oriented Labs: CBC, BMP 09/16/17 08:00 09/16/17 08:00 INR, PTT INR 1.19 (0.82-1.09) H 09/14/17 11:00 Laboratory Tests 09/16/17 08:00 C-Reactive Protein 4.7 H Hepatic Panel Total Bilirubin 0.9 mg/dL (0.2-1.0) 09/14/17 11:00 AST 13 U/L (15-37) L D 09/14/17 11:00 ALT 23 U/L (12-78) D 09/14/17 11:00 Alkaline Phosphatase 66 U/L (45-117) 09/14/17 11:00 Albumin 4.2 g/dl (3.4-5.0) 09/14/17 11:00 Problem List - Problems (1) Colitis Assessment/Plan: diverticulitis or alternate pathology in setting of chronic corticosteroid use leading to inflammatory process of the ileocolonic anastamosis anastamosis. Much improved with conservative measures Advised: Continuing Clears for today, advance to full liquid in AM if continued improvement Daily labs IV Abx Code(s): K52.9 - NONINFECTIVE GASTROENTERITIS AND COLITIS, UNSPECIFIED (2) Loose bowel movements Assessment/Plan: Likely secondary to Abx therapy compunded by laxatives Stool for C. Diff if persists Laxatives held Code(s): R19.7 - DIARRHEA, UNSPECIFIED
[2017-09-16] MEDS: RANITIDINE HCL 150 MG TABLET (FP) PO SCH (13:32)
--- NOTE | 2017-09-16 14:00 | PN ---
Progress Note, Physician Chief Complaint: Less abdominal pain denies any nausea or vomiting History of Present Illness: 71 yrs old F with H/O COPD, Hyperthyroidism, Rt Hemicolectomy, HTN present with acute collitis with elevated TWBC , evaluated by GI on IV abx. - Current Medication List Current Medications: Active Medications Acetaminophen (Tylenol -) 650 mg PO Q4H PRN PRN Reason: FEVER OR PAIN Amlodipine Besylate (Norvasc -) 10 mg PO DAILY [facility] Last Admin: 09/16/17 09:38 Dose: 10 mg Arformoterol Tartrate (Brovana (Restricted To Pulmonology/Resp) -) 1 amp NEB BID [facility] Last Admin: 09/16/17 09:15 Dose: 1 amp Cholecalciferol (Vitamin D3 -) 2,000 unit PO DAILY [facility] Last Admin: 09/16/17 09:38 Dose: 2,000 unit Docusate Sodium (Colace -) 100 mg PO BID [facility] Last Admin: 09/16/17 10:05 Dose: Not Given Sodium Chloride (Normal Saline -) 1,000 mls @ 75 mls/hr IV ASDIR [facility] Last Admin: 09/15/17 21:09 Dose: 75 mls/hr Metronidazole (Flagyl 500mg Premixed Ivpb -) 500 mg in 100 mls @ 100 mls/hr IVPB Q8H-IV [facility] Last Admin: 09/16/17 09:38 Dose: 100 mls/hr Levofloxacin (Levaquin 500 Mg Premixed Ivpb -) 500 mg in 100 mls @ 100 mls/hr IVPB DAILY [facility] Last Admin: 09/16/17 10:53 Dose: 100 mls/hr Lactobacillus Acidophilus (Bacid -) 1 tab PO DAILY [facility] Last Admin: 09/16/17 09:38 Dose: 1 tab Methimazole (Tapazole -) 2.5 mg PO DAILY [facility] Last Admin: 09/16/17 09:38 Dose: 2.5 mg Morphine Sulfate (Morphine Sulfate) 2 mg IVPUSH Q4H PRN PRN Reason: PAIN LEVEL 6-10 Last Admin: 09/15/17 23:09 Dose: 2 mg Ondansetron HCl (Zofran Injection) 4 mg IVPUSH Q6H PRN PRN Reason: NAUSEA Last Admin: 09/16/17 11:33 Dose: 4 mg Polyethylene Glycol (Miralax (For Daily Use) -) 17 gm PO DAILY [facility] Last Admin: 09/16/17 10:05 Dose: Not Given Prednisone (Deltasone -) 5 mg PO DAILY [facility] Last Admin: 09/16/17 09:38 Dose: 5 mg Ranitidine HCl (Zantac -) 150 mg PO DAILY [facility] Last Admin: 09/16/17 13:32 Dose: 150 mg Valsartan (Diovan -) 320 mg PO DAILY [facility] Last Admin: 09/16/17 09:38 Dose: 320 mg - Objective Vital Signs: Vital Signs Temperature 97.6 F 09/16/17 09:20 Pulse Rate 76 09/16/17 09:20 Respiratory Rate 22 09/16/17 09:20 Blood Pressure 124/64 09/16/17 09:20 O2 Sat by Pulse Oximetry (%) 97 09/15/17 21:00 Comfortable less abd pain, no nausea, vomiting or diarrhea. HEENT: Mm moist no anaemia, PERRLA EOMI NECK; No JVSD No Bruit CHEST: CTA B/L CVS: S1S2 R no m/g/r ABD: Obese, mild mild tenderness Rt LQ BS + EXT: Trace edema feet [employer]: Non focal Labs: CBC, BMP 09/16/17 08:00 09/16/17 08:00 INR, PTT INR 1.19 (0.82-1.09) H 09/14/17 11:00 Problem List - Problems (1) Colitis Assessment/Plan: cont pain meds IV Levofloxacin , evaluated by GI consult Code(s): K52.9 - NONINFECTIVE GASTROENTERITIS AND COLITIS, UNSPECIFIED (2) Anxiety Assessment/Plan: Cont all home medications. Code(s): F41.9 - ANXIETY DISORDER, UNSPECIFIED (3) H/O right hemicolectomy Assessment/Plan: No active issue Ct scan shows normal anastomotic site. Code(s): Z90.49 - ACQUIRED ABSENCE OF OTHER SPECIFIED PARTS OF DIGESTIVE TRACT (4) Leukocytosis Code(s): D72.829 - ELEVATED WHITE BLOOD CELL COUNT, UNSPECIFIED (5) COPD (chronic obstructive pulmonary disease) Assessment/Plan: Stable no c/o SOB cont Home meds. Code(s): J44.9 - CHRONIC OBSTRUCTIVE PULMONARY DISEASE, UNSPECIFIED Qualifiers: COPD type: chronic bronchitis (6) Hyperkalemia Assessment/Plan: Recived Kayxelate F/U BMP in am Code(s): E87.5 - HYPERKALEMIA (7) Hyperthyroidism Assessment/Plan: cont home meds at present symptomatic. Code(s): E05.90 - THYROTOXICOSIS, UNSP WITHOUT THYROTOXIC CRISIS OR STORM
[2017-09-16] MEDS: SODIUM CHLORIDE 1,000 ML IV SCH ×2 (14:32→17:52)
[2017-09-16 19:47] LABS: URINE LEUK ESTERASE Negative (NEGATIVE)
[2017-09-17] MEDS: METRONIDAZOLE 500 MG PREMIXED 500 MG/100 ML MG IVPB SCH ×3 (01:55→17:14)
[2017-09-17] MEDS: SODIUM CHLORIDE 1,000 ML IV SCH ×3 (06:01→22:49)
[2017-09-17 08:58] LABS: BASO % 0.4 % (0-2.0); EOS % 3.2 % (0-4.5); MCH 30.7 pg (25.7-33.7); MCHC 33.1 g/dl (32.0-36.0); MEAN CELL VOLUME 92.7 fl (80-96); MEAN PLT VOLUME 8.4 fl (7.5-11.1); NEUT % 73.3 % (42.8-82.8); PLATELET COUNT 203 K/MM3 (134-434); RDW 13.6 % (11.6-15.6); WHITE BLOOD COUNT 8.5 K/mm3 (4.0-10.0)
[2017-09-17] MEDS: VALSARTAN 160 MG TABLET (UD) PO SCH (09:01)
[2017-09-17] MEDS: DOCUSATE SODIUM 100 MG CAPSULE (FP) PO SCH ×2 (09:01→21:36)
[2017-09-17] MEDS: predniSONE 5 MG TABLET (UD) PO SCH (09:01)
[2017-09-17] MEDS: LACTOBACILLUS ACIDOPHILUS 1 EACH TAB (FP) PO SCH (09:02)
[2017-09-17] MEDS: CHOLECALCIFEROL (VITAMIN D3) 1,000 UNIT TABLET (FP) PO SCH (09:02)
[2017-09-17] MEDS: amLODIPine BESYLATE 10 MG TABLET (FP) PO SCH (09:02)
[2017-09-17] MEDS: METHIMAZOLE 5 MG TABLET (FP) PO SCH (09:02)
[2017-09-17] MEDS: RANITIDINE HCL 150 MG TABLET (FP) PO SCH (09:02)
[2017-09-17] MEDS: POLYETHYLENE GLYCOL 3350 119 GM BTL PO SCH (09:02)
--- NOTE | 2017-09-17 09:48 | PN ---
Progress Note (short form) - Note Progress Note: Patient admitted with right sided abdominal pain which has responded to IV antibiotics with WBC falling from 20,000 to 8,000. She has a Hx of partial colectomy for large polyp, Hypertension and COPD. Hx GB Calculi. Some diarrhea today and didn't want to take laxatives. On Exam: Vital Signs Temp 98 F 09/17/17 08:57 Pulse 69 09/17/17 08:57 Resp 20 09/17/17 08:57 BP 133/75 09/17/17 08:57 Pulse Ox 96 09/16/17 21:00 Intake & Output 09/16/17 09/16/17 09/17/17 11:59 23:59 11:59 Intake Total 1125 2009 1125 Balance 1125 2009 1125 Intake: IV 825 750 825 Normal Saline - 1,000 ml 825 750 825 @ 75 mls/hr IV ASDIR [facility] Rx#:[id number] IVPB 100 300 100 Oral 200 960 200 Other: Voiding Method Toilet # Unmeasured Voids Void 2 1 2 Bowel Movement No # Bowel Movements 1 Alert Sitting at Bedside Chest: a few rhonchi bilaterally Cor: Reg Abd: Distended with increased bowel sounds and slight RUQ and RLQ tenderness Ext: No edema Abnormal Lab Results 09/16/17 09/17/17 08:00 08:20 Anion Gap 7 L Random Glucose 118 H D C-Reactive Protein 2.1 H D IMP: Acute Colitis/Diverticulitis S/P hemicolectomy COPD Hypertension Plan: Increase diet to Full Liquid Monitor VS OOB and Walk in halls ? Timing of D/C IV antibiotics
[2017-09-17] MEDS: LEVOFLOXACIN 500 MG IVPB 500 MG/100 ML BAG IVPB SCH (09:55)
[2017-09-17] MEDS: ARFORMOTEROL TARTRATE 15 MCG/2 ML VIAL NEB SCH ×2 (10:35→22:00)
--- NOTE | 2017-09-17 13:29 | PN ---
GI Progress Note Subjective: Ms. Valdes found sitting up in bed in bed No acute events States feeling well. pain now "1.5-2 out of 10" No copious diarrhea reported - Objective Vital Signs: Vital Signs Temperature 98 F 09/17/17 08:57 Pulse Rate 74 09/17/17 10:40 Respiratory Rate 20 09/17/17 09:00 Blood Pressure 133/75 09/17/17 08:57 O2 Sat by Pulse Oximetry (%) 96 09/17/17 10:40 Constitutional: Calm Eyes: No: Sclera Icterus Cardiovascular: Yes: Regular Rate and Rhythm Gastrointestinal Inspection: No: Distention ...Auscultate: Yes: Normoactive Bowel Sounds ...Palpate: Yes: Soft, Tenderness (Much improved TTP right abdomen). No: Guarding, Tenderness, Rebound Neurological: Yes: Alert, Oriented Labs: CBC, BMP 09/17/17 08:20 09/16/17 08:00 INR, PTT INR 1.19 (0.82-1.09) H 09/14/17 11:00 Laboratory Tests 09/16/17 09/17/17 08:00 08:20 C-Reactive Protein 4.7 H 2.1 H D Assessment/Plan Continued clinical improvement. CRP trending down Advance to low fiber diet for dinner IV Abx If she can tolerate low fiber diet, can change to PO Abx. Will need total of 10 days of Abx therapy including days on IV abx while an inpatient. Low fiber diet for 2-3 more weeks Outpatient f/u with Dr. Kent in 1-2 weeks Problem List - Problems (1) Colitis Code(s): K52.9 - NONINFECTIVE GASTROENTERITIS AND COLITIS, UNSPECIFIED (2) Loose bowel movements Code(s): R19.7 - DIARRHEA, UNSPECIFIED
[2017-09-17] MEDS: ONDANSETRON 4 MG/2 ML VIAL IVPUSH PRN (21:36)
--- NOTE | 2017-09-18 01:52 | EKG ---
Test Reason : Blood Pressure : / mmHG Vent. Rate : 078 BPM Atrial Rate : 078 BPM P-R Int : 136 ms QRS Dur : 066 ms QT Int : 432 ms P-R-T Axes : 028 050 015 degrees QTc Int : 492 ms NORMAL SINUS RHYTHM NONSPECIFIC ST AND T WAVE ABNORMALITY ABNORMAL ECG WHEN COMPARED WITH ECG OF 18-FEB-2016 11:29, T WAVE VARIATION Confirmed by ILDA HENDRICKS MD ([id number]) on 09/18/2017 1:52:06 AM Referred By: Confirmed By:ILDA HENDRICKS MD
[2017-09-18] MEDS: METRONIDAZOLE 500 MG PREMIXED 500 MG/100 ML MG IVPB SCH ×2 (02:39→09:21)
[2017-09-18 09:16] LABS: ANION GAP 8 (8-16); CALCIUM 8.8 mg/dL (8.5-10.1); CO2 26 mmol/L (21-32); GLUCOSE,RANDOM 112 mg/dL (74-106)
--- NOTE | 2017-09-18 10:20 | PN ---
GI Progress Note Subjective: Patient seen walking in patel, no distress Soft BM last night, none reported today Tolerated low fiber diet this morning - Objective Vital Signs: Vital Signs Temperature 97.8 F 09/18/17 09:00 Pulse Rate 71 09/18/17 09:00 Respiratory Rate 20 09/18/17 09:00 Blood Pressure 126/76 09/18/17 09:00 O2 Sat by Pulse Oximetry (%) 96 09/17/17 21:00 Constitutional: Calm Eyes: No: Sclera Icterus Cardiovascular: Yes: Regular Rate and Rhythm Respiratory: Yes: Rhonchi (fine rhonchi right mid lung field), Tachypnea (exam performed after she was walking the floor) Gastrointestinal Inspection: No: Distention ...Auscultate: Yes: Normoactive Bowel Sounds ...Palpate: Yes: Tenderness (Improved TTP right abdomen). No: Guarding, Tenderness, Rebound Edema: Yes Edema: LLE: 2+ (pitting), RLE: 2+ (pitting) Neurological: Yes: Alert, Oriented Labs: \ CBC, BMP 09/18/17 08:00 Problem List - Problems (1) Colitis Assessment/Plan: Clinically improved Received IV Abx today, can change to PO Abx for discharge Low fiber diet Checked repeat CRP today Spoke with Ms. Valdes's nurse about her complaints of SOB. To be assessed. D/C'd IV fluids F/U with Dr. Kent 1-2 weeks Code(s): K52.9 - NONINFECTIVE GASTROENTERITIS AND COLITIS, UNSPECIFIED (2) Loose bowel movements Code(s): R19.7 - DIARRHEA, UNSPECIFIED
[2017-09-18] MEDS: ARFORMOTEROL TARTRATE 15 MCG/2 ML VIAL NEB SCH ×2 (10:25→23:20)
[2017-09-18 10:29] LABS: MCH 30.7 pg (25.7-33.7); MEAN CELL VOLUME 92.8 fl (80-96); MEAN PLT VOLUME 8.5 fl (7.5-11.1); PLATELET COUNT 224 K/MM3 (134-434); WHITE BLOOD COUNT 8.7 K/mm3 (4.0-10.0)
[2017-09-18] MEDS ORDERED: FUROSEMIDE 40 MG/4 ML INJECTABLE VIAL IVPUSH ONE (10:34)
[2017-09-18 10:40] LABS: C-REACTIVE PROTEIN 1.2 MG/DL (0.00-0.3)
--- NOTE | 2017-09-18 10:41 | PN ---
Progress Note (short form) - Note Progress Note: Patient with Acute Colitis/Diverticulitis is improved with IV antibiotics but more SOB this AM. She has been on IV fluids but now tolerating low residue diet. She feels "puffy" and has COPD also. On Exam: Vital Signs Temp 97.8 F 09/18/17 09:00 Pulse 71 09/18/17 09:00 Resp 20 09/18/17 09:00 BP 126/76 09/18/17 09:00 Pulse Ox 96 09/17/17 21:00 Intake & Output 09/17/17 09/17/17 09/18/17 11:59 23:59 11:59 Intake Total 1325 450 Balance 1325 450 Intake: IV 825 Normal Saline - 1,000 ml 825 @ 75 mls/hr IV ASDIR [facility] Rx#:[id number] IVPB 300 Oral 200 450 Other: Voiding Method Toilet Toilet # Unmeasured Voids Void 2 alert Feels SOB Chest: few crackles at base Cor: Tachycardia Ext: 1+ edema Hepatic Panel Total Bilirubin 0.9 mg/dL (0.2-1.0) 09/14/17 11:00 AST 13 U/L (15-37) L D 09/14/17 11:00 ALT 23 U/L (12-78) D 09/14/17 11:00 Alkaline Phosphatase 66 U/L (45-117) 09/14/17 11:00 Albumin 4.2 g/dl (3.4-5.0) 09/14/17 11:00 IMP: Resolving Acute Colitis/Diverticulitis COPD Possible fluid overload Hypertension Hx: Hemicolectomy Plan: Lasix IV 20 mg X1 F/U lab AM [facility] for D/C AM
[2017-09-18] MEDS: RANITIDINE HCL 150 MG TABLET (FP) PO SCH (10:57)
[2017-09-18] MEDS: LEVOFLOXACIN 500 MG IVPB 500 MG/100 ML BAG IVPB SCH (10:57)
[2017-09-18] MEDS: METHIMAZOLE 5 MG TABLET (FP) PO SCH (10:59)
[2017-09-18] MEDS: VALSARTAN 160 MG TABLET (UD) PO SCH (10:59)
[2017-09-18] MEDS: DOCUSATE SODIUM 100 MG CAPSULE (FP) PO SCH ×2 (10:59→22:05)
[2017-09-18] MEDS: amLODIPine BESYLATE 10 MG TABLET (FP) PO SCH (10:59)
[2017-09-18] MEDS: CHOLECALCIFEROL (VITAMIN D3) 1,000 UNIT TABLET (FP) PO SCH (10:59)
[2017-09-18] MEDS: predniSONE 5 MG TABLET (UD) PO SCH (10:59)
[2017-09-18] MEDS: LACTOBACILLUS ACIDOPHILUS 1 EACH TAB (FP) PO SCH (10:59)
[2017-09-18] MEDS: metroNIDAZOLE 250 MG TABLET PO SCH ×2 (14:15→22:04)
[2017-09-19] MEDS ORDERED: LEVOFLOXACIN 500 MG TABLET (FP) PO SCH (06:00)
[2017-09-19] MEDS: metroNIDAZOLE 250 MG TABLET PO SCH (06:13)
[2017-09-19 09:15] LABS: ANION GAP 7 (8-16); CALCIUM 8.9 mg/dL (8.5-10.1); CO2 30 mmol/L (21-32); CREATININE 1.1 mg/dL (0.55-1.02); GLUCOSE,RANDOM 88 mg/dL (74-106)
[2017-09-19] MEDS: predniSONE 5 MG TABLET (UD) PO SCH (09:52)
[2017-09-19] MEDS: VALSARTAN 160 MG TABLET (UD) PO SCH (09:52)
[2017-09-19] MEDS: LACTOBACILLUS ACIDOPHILUS 1 EACH TAB (FP) PO SCH (09:52)
[2017-09-19] MEDS: CHOLECALCIFEROL (VITAMIN D3) 1,000 UNIT TABLET (FP) PO SCH (09:52)
[2017-09-19] MEDS: amLODIPine BESYLATE 10 MG TABLET (FP) PO SCH (09:52)
[2017-09-19] MEDS: METHIMAZOLE 5 MG TABLET (FP) PO SCH (09:52)
[2017-09-19] MEDS: DOCUSATE SODIUM 100 MG CAPSULE (FP) PO SCH (09:55)
[2017-09-19 09:58] VITALS: BP 133/81; PULSE 82; TEMP 97.8
[2017-09-19] MEDS: ARFORMOTEROL TARTRATE 15 MCG/2 ML VIAL NEB SCH (10:04)
--- NOTE | 2017-09-19 19:34 | DS ---
Physical Examination Vital Signs: Vital Signs Temperature 97.8 F 09/19/17 09:00 Pulse Rate 82 09/19/17 09:00 Respiratory Rate 20 09/19/17 09:00 Blood Pressure 133/81 09/19/17 09:00 O2 Sat by Pulse Oximetry (%) 95 09/18/17 21:00 Constitutional: Yes: No Distress Eyes: Yes: EOM Intact Cardiovascular: Yes: Regular Rate and Rhythm Respiratory: Yes: Other (few rhonchi at the bases) Gastrointestinal: Yes: Soft, Tenderness (very mild right lower quadrant tenderness) Extremities: Yes: WNL Edema: No Neurological: Yes: Alert, Oriented Labs: CBC, BMP 09/18/17 06:10 09/19/17 07:45 Discharge Summary Reason For Visit: COLITIS,ABD PAIN acute diverticulitis Acute colitis COPD acute Fluid overload Acute pain Hypertension acute Procedures: Principal: IV antibiotics blood cultures CAT scan of abdomen Other Procedures: GI sediment remediation consultant. Pulmonary consult Hospital Course: slowly improved; the GI physician recommended 10 days complete antibiotics and she will be continued would 5 more days of Flagyl 500 mg 3 times a day and Levaquin 500 mg once a day for 5 more days at home Condition: Improved - Instructions Diet, Activity, Other Instructions: Low residue diet See Dr. Kent within [address] Chris also. Antibiotics for 5 more days only. Referrals: Jordy Chris MD [Primary Care Provider] - Sanam Kent MD [Staff Physician] - Disposition: HOME - Home Medications Comprehensive Discharge Medication List: Ambulatory Orders Arformoterol Tartrate [Brovana -] 1 amp NEB BID #60 amp 12/17/15 Lactobacillus Acidophilus [Bacid -] 1 tab PO DAILY #30 tab 12/17/15 Cholecalciferol (Vitamin D3) [D3-2000] 2,000 unit PO DAILY 02/03/16 Prednisone [Deltasone -] 5 mg PO DAILY tablet 02/22/16 Amlodipine Besylate [Norvasc -] 10 mg PO DAILY 02/15/17 Methimazole 2.5 mg PO DAILY 02/15/17 Olmesartan Medoxomil 40 mg PO DAILY 02/15/17 Acetaminophen [Tylenol .Regular Strength -] 650 mg PO Q4H PRN tablet 09/19/17 Levofloxacin [Levaquin -] 500 mg PO DAILY@0600 #5 tablet 09/19/17 Metronidazole [Flagyl -] 500 mg PO TID #15 tablet 09/19/17
== END 2017-09-19 11:15 | disposition home or self-care (01) | DRG 392 ==
LOC: JER 09:59 → JERBED 15:29 → J6S 17:22
PROVIDERS: ADMIT Internal Medicine; ATTEND Internal Medicine
DX: K52.9 Noninfective gastroenteritis and colitis, unspecified (principal); K57.92 Diverticulitis of intestine, part unspecified, without perforation or abscess without bleeding; N17.9 Acute kidney failure, unspecified; J44.9 Chronic obstructive pulmonary disease, unspecified; I10 Essential (primary) hypertension; E05.90 Thyrotoxicosis, unspecified without thyrotoxic crisis or storm; E78.5 Hyperlipidemia, unspecified; E87.70 Fluid overload, unspecified; F41.9 Anxiety disorder, unspecified; D72.829 Elevated white blood cell count, unspecified; E87.5 Hyperkalemia; Z87.891 Personal history of nicotine dependence
CPT/HCPCS: 36415; 74177-TC; 76705-TC; 80048; 80053; 81003; 81015; 83605; 83690; 83735; 84100; 85025; 85027; 85610; 86140; 86850; 86900; 86901; 87040; 93005; 93010; 94640; 99284-25

== ENCOUNTER 2018-03-06 06:36 | Day surgery (SDC) | payer OTHER ==
[2018-03-05 14:56] VITALS: BMI 27.8
[2018-03-06] MEDS ORDERED: LIDOCAINE HCL/PF 2% SDV 5ML VIAL ONE (07:55)
[2018-03-06] MEDS ORDERED: PROPOFOL 20 ML ONE ×3 (07:55)
[2018-03-06] MEDS ORDERED: LIDOCAINE HCL 2% (20ML MULTI-DOSE VIAL) NR ONE (07:56)
[2018-03-06 08:38] VITALS: TEMP 98.9
[2018-03-06 09:30] LABS: BASO % 0.3 % (0-2.0); EOS % 0.4 % (0-4.5); HEMATOCRIT 41.7 % (32.4-45.2); HEMOGLOBIN 14.2 GM/dL (10.7-15.3); LYMPH % 15.5 % (8-40); MCH 31.5 pg (25.7-33.7); MEAN CELL VOLUME 92.5 fl (80-96); MEAN PLT VOLUME 8.3 fl (7.5-11.1); MONO % 7.6 % (3.8-10.2); NEUT % 76.2 % (42.8-82.8); PLATELET COUNT 243 K/MM3 (134-434); RBC 4.51 M/mm3 (3.60-5.2); RDW 13.6 % (11.6-15.6); WHITE BLOOD COUNT 9.9 K/mm3 (4.0-10.0)
[2018-03-06] MEDS ORDERED: CEFUROXIME AXETIL 500 MG TABLET PO ONE (09:36)
[2018-03-06 10:04] LABS: ALBUMIN 3.8 g/dl (3.4-5.0); ANION GAP 7 (8-16); BILIRUBIN,TOTAL 0.6 mg/dL (0.2-1.0); CALCIUM 9.2 mg/dL (8.5-10.1); CHLORIDE 108 mmol/L (98-107); CO2 26 mmol/L (21-32); CREATININE 1.2 mg/dL (0.55-1.02); GLUCOSE,RANDOM 100 mg/dL (74-106); POTASSIUM 5.6 mmol/L (3.5-5.1); SGOT/AST 19 U/L (15-37); SGPT/ALT 27 U/L (12-78); SODIUM 141 mmol/L (136-145)
[2018-03-06 10:31] LABS: ALK PHOS 60 U/L (45-117); BLOOD UREA NITROGEN 15 mg/dL (7-18); TOT PROT 6.8 g/dl (6.4-8.2)
[2018-03-06 10:43] VITALS: BP 119/69; PULSE 66
[2018-03-06] MEDS ORDERED: ATROPINE SULFATE 1 MG/10 ML DISP.SYRIN ONE (11:00)
[2018-03-07 08:07] LABS: CARCINOEMBRYONIC ANTIGEN 6.6 ng/mL (0.0-4.7)
--- NOTE | 2018-03-07 18:48 | PATH ---
Surgical Pathology Report Patient Name: ZINA APONTE [facility]. Rec. #: [id number] /Age/Gender: 1945 (Age: 72) / F Account: [id number] Location: [facility]-ENDOSCOPY Taken: 03/06/2018 Received: 03/06/2018 Reported: 03/07/2018 Physicians: Sanam Kent M.D. Specimen(s) Received A: POLYP SIGMOID B: ANASTOMOSIS BX Clinical History Colon cancer, adenoma surveillance Postoperative diagnosis: Polyp, diverticulosis, patent anastomosis Final Diagnosis A. SIGMOID COLON, POLYP, POLYPECTOMY: HYPERPLASTIC POLYP. B. ANASTOMOSIS, BIOPSY: JUNCTIONAL (SMALL BOWEL/COLONIC) MUCOSA WITH SMALL LYMPHOID AGGREGATE. Electronically Signed Hilda Snow M.D. Gross Description A. Received in formalin, labeled "sigmoid" are 3 miller, irregular portions of soft tissue measuring 0.2 cm. in greatest dimension. The specimens are submitted in toto in one cassette. B. Received in formalin, labeled "anastomosis" are 4 miller, irregular portions of soft tissue ranging in size from 0.1-0.3 cm. in greatest dimension. The specimens are submitted in toto in one cassette. RENE/03/06/2018 roxy/03/06/2018
== END 2018-03-06 10:44 | disposition home or self-care (01) ==
LOC: JASU-ENDO 06:36
PROVIDERS: ATTEND Internal Medicine Gastroenterology
PROC: 0DBL8ZX Excision of Transverse Colon, Via Natural or Artificial Opening Endoscopic, Diagnostic (ICD-10-PCS; 2018-03-06)
PROC: 0DBN8ZX Excision of Sigmoid Colon, Via Natural or Artificial Opening Endoscopic, Diagnostic (ICD-10-PCS; principal; 2018-03-06 08:00)
DX: Z12.11 Encounter for screening for malignant neoplasm of colon (principal); Z85.038 Personal history of other malignant neoplasm of large intestine; Z86.010 Personal history of colon polyps; D12.5 Benign neoplasm of sigmoid colon; K57.30 Diverticulosis of large intestine without perforation or abscess without bleeding; K63.89 Other specified diseases of intestine; K64.8 Other hemorrhoids; Z98.0 Intestinal bypass and anastomosis status
CPT/HCPCS: 36415; 80053; 82378; 82728; 83540; 83550; 85025; 86140; 88305-TC

== ENCOUNTER 2019-03-21 06:55 | Day surgery (SDC) | payer OTHER ==
[2019-03-20 15:30] VITALS: BMI 28.0
[2019-03-21 08:46] VITALS: TEMP 98.1
[2019-03-21 09:51] VITALS: BP 123/51; PULSE 59
--- NOTE | 2019-03-24 16:43 | PATH ---
Surgical Pathology Report Patient Name: ZINA APONTE [facility]. Rec. #: [id number] /Age/Gender: 1945 (Age: 73) / F Account: [id number] Location: [facility]SU-ENDOSCOPY Taken: 03/21/2019 Received: 03/21/2019 Reported: 03/24/2019 Physicians: Sanam Kent M.D. Specimen(s) Received A: ANASTOMOSIS B: BX TRANSVERSE COLON POLYP Clinical History Colon cancer surveillance Postoperative diagnosis: Colon polyp, patent anastomosis Final Diagnosis A. ANASTOMOSIS, BIOPSY: COLONIC MUCOSA WITH FOCAL SURFACE HYPERPLASTIC CHANGE. B. TRANSVERSE COLON POLYP: COLONIC MUCOSA AND REACTIVE LYMPHOID AGGREGATE IN THE LAMINA PROPRIA. SEPARATE SMALL INTESTINAL MUCOSA WITH NO SIGNIFICANT PATHOLOGIC CHANGE. Electronically Signed Maira Blood M.D. Gross Description A. Received in formalin, labeled "biopsy anastomosis" are 4 miller, irregular portions of soft tissue ranging from 0.3-0.4 cm. in greatest dimension. The specimens are submitted in toto in one cassette. B. Received in formalin, labeled "biopsy transverse colon polyp" are 2 miller, irregular portions of soft tissue measuring 0.2 and 0.4 cm. in greatest dimension. The specimens are submitted in toto in one cassette. /03/21/201903/21/2019
== END 2019-03-21 10:57 | disposition home or self-care (01) ==
LOC: JASU-ENDO 06:55
PROVIDERS: ATTEND Internal Medicine Gastroenterology
PROC: 0DBL8ZX Excision of Transverse Colon, Via Natural or Artificial Opening Endoscopic, Diagnostic (ICD-10-PCS; principal; 2019-03-21 08:00)
DX: Z12.11 Encounter for screening for malignant neoplasm of colon (principal); Z86.010 Personal history of colon polyps; D12.3 Benign neoplasm of transverse colon; K64.8 Other hemorrhoids; K63.89 Other specified diseases of intestine; Z98.0 Intestinal bypass and anastomosis status
CPT/HCPCS: 88305-TC

== ENCOUNTER 2019-06-12 05:35 | Day surgery (SDC) | payer OTHER ==
[2019-06-11 14:27] VITALS: BMI 27.8
[~2019-06-12 05:35] MED LIST: SODIUM CHLORIDE 250 ML IV ONE
[2019-06-12] MEDS ORDERED: SODIUM CHLORIDE 250 ML IV ONE ×2 (09:00→12:00)
[2019-06-12 09:42] LABS: BASO % 0.1 % (0-2.0); HEMATOCRIT 42.9 % (32.4-45.2); HEMOGLOBIN 14.6 GM/dL (10.7-15.3); LYMPH % 3.2 % (8-40); MCH 31.3 pg (25.7-33.7); MCHC 33.9 g/dl (32.0-36.0); MEAN CELL VOLUME 92.2 fl (80-96); MEAN PLT VOLUME 9.5 fl (7.5-11.1); MONO % 0.4 % (3.8-10.2); NEUT % 96.3 % (42.8-82.8); PLATELET COUNT 260 K/MM3 (134-434); RBC 4.66 M/mm3 (3.60-5.2); WHITE BLOOD COUNT 10.8 K/mm3 (4.0-10.0)
[2019-06-12] MEDS ORDERED: PALONOSETRON HCL 0.25 MG/5 ML VIAL IVPUSH ONE (10:00)
[2019-06-12] MEDS ORDERED: DEXAMETHASONE SODIUM PHOSPHATE IVPB ONE (10:00)
[2019-06-12] MEDS ORDERED: [UNRECOGNIZED DRUG - OTHER] IVPB ONE (10:00)
[2019-06-12] MEDS ORDERED: RANITIDINE IVPB ONE (10:00)
[2019-06-12 10:11] LABS: ALBUMIN 4.3 g/dl (3.4-5.0); BILIRUBIN,TOTAL 0.7 mg/dL (0.2-1); BLOOD UREA NITROGEN 24.1 mg/dL (7-18); CALCIUM 9.7 mg/dL (8.5-10.1); CREATININE 1.1 mg/dL (0.55-1.3); MAGNESIUM 2.4 mg/dL (1.8-2.4); POTASSIUM 4.4 mmol/L (3.5-5.1); TOT PROT 7.8 g/dl (6.4-8.2)
[2019-06-12] MEDS ORDERED: PACLITAXEL 90 MG in SODIUM CHLORIDE 250 ML IVPB ONE ×2 (10:30→13:30)
[2019-06-12 10:41] LABS: INR 0.97 (0.83-1.09); PROTHROMBIN TIME (PATIENT) 11.5 SEC (9.7-13.0)
[2019-06-12 11:26] LABS: ANISOCYTOSIS 0; MACROCYTOSIS 0; PLATELET ESTIMATE NORMAL
[2019-06-12] MEDS ORDERED: SODIUM CHLORIDE IVPB ONE ×2 (11:30→13:30)
[2019-06-12] MEDS ORDERED: CARBOPLATIN IVPB ONE ×2 (11:30→13:30)
[2019-06-12] MEDS ORDERED: CEFAZOLIN 1 GM in DEXTROSE 5%-WATER - 50 ML IVPB ONE ×2 (13:00→13:15)
[2019-06-12 19:07] VITALS: BP 142/77; PULSE 103; TEMP 98.3
[2019-06-12] MEDS ORDERED: PORTA CATH FLUSH 10 ML IVPUSH ONE (19:07)
== END 2019-06-12 18:30 | disposition home or self-care (01) ==
LOC: JRADIR 05:35 → J7W 13:09 → JRADIR 18:30
PROVIDERS: ATTEND Internal Medicine Hematology & Oncology
PROC: 0JH63XZ Insertion of Tunneled Vascular Access Device into Chest Subcutaneous Tissue and Fascia, Percutaneous Approach (ICD-10-PCS; principal; 2019-06-12)
PROC: 02H633Z Insertion of Infusion Device into Right Atrium, Percutaneous Approach (ICD-10-PCS; 2019-06-12)
PROC: B244ZZZ Ultrasonography of Right Heart (ICD-10-PCS; 2019-06-12)
DX: C34.90 Malignant neoplasm of unspecified part of unspecified bronchus or lung (principal)
CPT/HCPCS: 36561; C1751; 36415; 77001-TC-FY; 80053; 83735; 84134; 85025; 85610; 96367; 96375; 96413; 96417; C1788; J2469

== ENCOUNTER 2019-06-19 05:23 | Day surgery (SDC) | payer OTHER ==
[2019-06-19] MEDS ORDERED: SODIUM CHLORIDE 250 ML IV ONE ×2 (09:30→12:00)
[2019-06-19] MEDS ORDERED: PALONOSETRON HCL 0.25 MG/5 ML VIAL IVPUSH ONE (10:00)
[2019-06-19] MEDS ORDERED: DEXAMETHASONE SODIUM PHOSPHATE 10 MG, DIPHENHYDRAMINE 50 MG, RANITIDINE INJECTION 50 MG... IVPB ONE (10:00)
[2019-06-19] MEDS ORDERED: PACLITAXEL 90 MG in SODIUM CHLORIDE 250 ML IVPB ONE (10:30)
[2019-06-19 10:38] LABS: BASO % 0.2 % (0-2.0); EOS % 0.2 % (0-4.5); HEMATOCRIT 41.3 % (32.4-45.2); LYMPH % 5.1 % (8-40); MCH 31.3 pg (25.7-33.7); MCHC 33.8 g/dl (32.0-36.0); MEAN CELL VOLUME 92.7 fl (80-96); MEAN PLT VOLUME 9.2 fl (7.5-11.1); MONO % 1.1 % (3.8-10.2); NEUT % 93.4 % (42.8-82.8); PLATELET COUNT 216 K/MM3 (134-434); RBC 4.46 M/mm3 (3.60-5.2); RDW 13.8 % (11.6-15.6); WHITE BLOOD COUNT 10.5 K/mm3 (4.0-10.0)
[2019-06-19 11:14] LABS: BILIRUBIN,TOTAL 0.5 mg/dL (0.2-1); BLOOD UREA NITROGEN 20.5 mg/dL (7-18); CALCIUM 9.4 mg/dL (8.5-10.1); MAGNESIUM 2.5 mg/dL (1.8-2.4); POTASSIUM 4.6 mmol/L (3.5-5.1)
[2019-06-19] MEDS ORDERED: CARBOPLATIN IVPB ONE (11:30)
[2019-06-19] MEDS ORDERED: SODIUM CHLORIDE IVPB ONE (11:30)
[2019-06-19] MEDS ORDERED: DEXAMETHASONE SODIUM PHOSPHATE 20 MG, DIPHENHYDRAMINE 50 MG, RANITIDINE INJECTION 50 MG... IVPB ONE (12:00)
[2019-06-19 14:19] LABS: ANISOCYTOSIS 3+; MACROCYTOSIS 0; PLATELET ESTIMATE NORMAL
[2019-06-19] MEDS ORDERED: PORTA CATH FLUSH 10 ML IVPUSH ONE (17:01)
[2019-06-19 17:02] VITALS: BP 142/71; PULSE 93; TEMP 97.8
== END 2019-06-19 15:55 | disposition home or self-care (01) ==
LOC: JONCCHEMO 05:23 → J7W 11:11 → JONCCHEMO 15:55
PROVIDERS: ATTEND Internal Medicine Hematology & Oncology
DX: Z51.11 Encounter for antineoplastic chemotherapy (principal); C34.90 Malignant neoplasm of unspecified part of unspecified bronchus or lung; J44.9 Chronic obstructive pulmonary disease, unspecified; I10 Essential (primary) hypertension; Z87.891 Personal history of nicotine dependence
CPT/HCPCS: 36415; 80053; 83735; 85025; 96367; 96375; 96413; 96417; J2469

== ENCOUNTER 2019-06-26 05:26 | Day surgery (SDC) | payer OTHER ==
[2019-06-26] MEDS ORDERED: SODIUM CHLORIDE 250 ML IV ONE ×2 (09:00→11:00)
[2019-06-26] MEDS ORDERED: PALONOSETRON HCL 0.25 MG/5 ML VIAL IVPUSH ONE (09:00)
[2019-06-26] MEDS ORDERED: DEXAMETHASONE INJECTION 10 MG, DIPHENHYDRAMINE 50 MG, RANITIDINE INJECTION 50 MG in SOD... IVPB ONE (09:00)
[2019-06-26] MEDS ORDERED: PACLITAXEL 90 MG in SODIUM CHLORIDE 250 ML IVPB ONE (09:30)
[2019-06-26] MEDS ORDERED: CARBOPLATIN IVPB ONE (10:30)
[2019-06-26] MEDS ORDERED: SODIUM CHLORIDE IVPB ONE (10:30)
[2019-06-26 12:17] LABS: BASO % 0.3 % (0-2.0); EOS % 1.2 % (0-4.5); HEMATOCRIT 38.7 % (32.4-45.2); HEMOGLOBIN 12.8 GM/dL (10.7-15.3); LYMPH % 16.4 % (8-40); MCHC 33.1 g/dl (32.0-36.0); MEAN CELL VOLUME 93.6 fl (80-96); MEAN PLT VOLUME 9.5 fl (7.5-11.1); MONO % 10.7 % (3.8-10.2); NEUT % 71.4 % (42.8-82.8); PLATELET COUNT 230 K/MM3 (134-434); RBC 4.13 M/mm3 (3.60-5.2); WHITE BLOOD COUNT 3.7 K/mm3 (4.0-10.0)
[2019-06-26 12:31] LABS: ALBUMIN 3.5 g/dl (3.4-5.0); BILIRUBIN,TOTAL 0.4 mg/dL (0.2-1); BLOOD UREA NITROGEN 16.3 mg/dL (7-18); CALCIUM 8.5 mg/dL (8.5-10.1); CREATININE 0.9 mg/dL (0.55-1.3); MAGNESIUM 2.3 mg/dL (1.8-2.4); POTASSIUM 4.6 mmol/L (3.5-5.1); TOT PROT 6.4 g/dl (6.4-8.2)
[2019-06-26 17:25] VITALS: TEMP 97.9
[2019-06-26] MEDS ORDERED: PORTA CATH FLUSH 10 ML IVPUSH ONE (17:25)
[2019-06-26 17:26] VITALS: BP 124/62; PULSE 64
== END 2019-06-26 16:40 | disposition home or self-care (01) ==
LOC: JONCCHEMO 05:26 → J7W 10:49 → JONCCHEMO 16:40
PROVIDERS: ATTEND Internal Medicine Hematology & Oncology
DX: Z51.11 Encounter for antineoplastic chemotherapy (principal); C34.90 Malignant neoplasm of unspecified part of unspecified bronchus or lung; J44.9 Chronic obstructive pulmonary disease, unspecified; I10 Essential (primary) hypertension; Z87.891 Personal history of nicotine dependence
CPT/HCPCS: 36415; 80053; 83735; 85025; 96361; 96367; 96375; 96413; 96417; J1100; J2469

== ENCOUNTER 2019-07-03 05:34 | Day surgery (SDC) | payer OTHER ==
[2019-07-03] MEDS ORDERED: SODIUM CHLORIDE 250 ML IV ONE ×2 (09:00→11:30)
[2019-07-03] MEDS ORDERED: PALONOSETRON HCL 0.25 MG/5 ML VIAL IVPUSH ONE (09:30)
[2019-07-03] MEDS ORDERED: DEXAMETHASONE SODIUM PHOSPHATE 10 MG, DIPHENHYDRAMINE 50 MG, RANITIDINE INJECTION 50 MG... IVPB ONE (09:30)
[2019-07-03] MEDS ORDERED: PACLITAXEL 90 MG in SODIUM CHLORIDE 250 ML IVPB ONE (10:00)
[2019-07-03 10:17] LABS: BASO % 0.3 % (0-2.0); EOS % 1.1 % (0-4.5); HEMATOCRIT 35.7 % (32.4-45.2); HEMOGLOBIN 12.1 GM/dL (10.7-15.3); LYMPH % 17.6 % (8-40); MCH 31.6 pg (25.7-33.7); MEAN CELL VOLUME 92.9 fl (80-96); MEAN PLT VOLUME 8.8 fl (7.5-11.1); MONO % 9.2 % (3.8-10.2); NEUT % 71.8 % (42.8-82.8); PLATELET COUNT 193 K/MM3 (134-434); RBC 3.84 M/mm3 (3.60-5.2); RDW 13.9 % (11.6-15.6); WHITE BLOOD COUNT 3.6 K/mm3 (4.0-10.0)
[2019-07-03 10:53] LABS: ALBUMIN 3.6 g/dl (3.4-5.0); BILIRUBIN,TOTAL 0.4 mg/dL (0.2-1); BLOOD UREA NITROGEN 22.3 mg/dL (7-18); CALCIUM 9.2 mg/dL (8.5-10.1); MAGNESIUM 1.9 mg/dL (1.8-2.4); POTASSIUM 4.1 mmol/L (3.5-5.1); TOT PROT 6.3 g/dl (6.4-8.2)
[2019-07-03] MEDS ORDERED: CARBOPLATIN IVPB ONE (11:00)
[2019-07-03] MEDS ORDERED: SODIUM CHLORIDE IVPB ONE (11:00)
[2019-07-03] MEDS ORDERED: PORTA CATH FLUSH 10 ML IVPUSH ONE (16:03)
[2019-07-03 16:04] VITALS: BP 107/60; PULSE 83; TEMP 97.6
[2019-07-05 00:07] LABS: CARCINOEMBRYONIC ANTIGEN 8.3 ng/mL (0.0-4.7)
== END 2019-07-03 15:00 | disposition home or self-care (01) ==
LOC: JONCCHEMO 05:34 → J7W 10:55 → JONCCHEMO 15:00
PROVIDERS: ATTEND Internal Medicine Hematology & Oncology
DX: Z51.11 Encounter for antineoplastic chemotherapy (principal); C34.90 Malignant neoplasm of unspecified part of unspecified bronchus or lung; J44.9 Chronic obstructive pulmonary disease, unspecified; I10 Essential (primary) hypertension; Z87.891 Personal history of nicotine dependence
CPT/HCPCS: 36415; 80053; 82378; 83735; 85025; 86300; 96361; 96367; 96375; 96413; 96417; J2469

== ENCOUNTER 2019-07-10 07:13 | Day surgery (SDC) | payer OTHER ==
[2019-07-10] MEDS ORDERED: SODIUM CHLORIDE 250 ML IV ONE ×2 (09:30→12:00)
[2019-07-10 09:49] VITALS: TEMP 98.5
[2019-07-10] MEDS ORDERED: DEXAMETHASONE SODIUM PHOSPHATE IVPB ONE (10:00)
[2019-07-10] MEDS ORDERED: PALONOSETRON HCL 0.25 MG/5 ML VIAL IVPUSH ONE (10:00)
[2019-07-10] MEDS ORDERED: [UNRECOGNIZED DRUG - OTHER] IVPB ONE (10:00)
[2019-07-10] MEDS ORDERED: RANITIDINE IVPB ONE (10:00)
[2019-07-10 10:27] LABS: BASO % 0.3 % (0-2.0); EOS % 0.8 % (0-4.5); HEMOGLOBIN 12.1 GM/dL (10.7-15.3); LYMPH % 12.6 % (8-40); MCH 31.9 pg (25.7-33.7); MCHC 34.5 g/dl (32.0-36.0); MEAN CELL VOLUME 92.5 fl (80-96); MEAN PLT VOLUME 9.1 fl (7.5-11.1); MONO % 10.8 % (3.8-10.2); NEUT % 75.5 % (42.8-82.8); PLATELET COUNT 148 K/MM3 (134-434); RBC 3.78 M/mm3 (3.60-5.2); WHITE BLOOD COUNT 5.5 K/mm3 (4.0-10.0)
[2019-07-10] MEDS ORDERED: PACLITAXEL 90 MG in SODIUM CHLORIDE 250 ML IVPB ONE (10:30)
[2019-07-10 11:01] LABS: ALBUMIN 3.6 g/dl (3.4-5.0); BILIRUBIN,TOTAL 0.6 mg/dL (0.2-1); BLOOD UREA NITROGEN 21.9 mg/dL (7-18); CALCIUM 9.1 mg/dL (8.5-10.1); MAGNESIUM 1.9 mg/dL (1.8-2.4); POTASSIUM 3.8 mmol/L (3.5-5.1); TOT PROT 6.5 g/dl (6.4-8.2)
[2019-07-10] MEDS ORDERED: CARBOPLATIN IVPB ONE (11:30)
[2019-07-10] MEDS ORDERED: SODIUM CHLORIDE IVPB ONE (11:30)
[2019-07-10 16:05] VITALS: BP 105/84; PULSE 97
== END 2019-07-10 15:15 | disposition home or self-care (01) ==
LOC: JONCCHEMO 07:13 → J7W 11:21 → JONCCHEMO 15:15
PROVIDERS: ATTEND Internal Medicine Hematology & Oncology
DX: Z51.11 Encounter for antineoplastic chemotherapy (principal); C34.90 Malignant neoplasm of unspecified part of unspecified bronchus or lung; J44.9 Chronic obstructive pulmonary disease, unspecified; Z87.891 Personal history of nicotine dependence
CPT/HCPCS: 36415; 80053; 83735; 85025; 96367; 96375; 96413; 96417; J2469

== ENCOUNTER 2019-07-17 07:15 | Day surgery (SDC) | payer OTHER ==
[2019-07-17] MEDS ORDERED: SODIUM CHLORIDE 250 ML IV ONE ×2 (09:00→11:30)
[2019-07-17] MEDS ORDERED: PALONOSETRON HCL 0.25 MG/5 ML VIAL IVPUSH ONE (09:30)
[2019-07-17] MEDS ORDERED: DEXAMETHASONE SODIUM PHOSPHATE 10 MG, DIPHENHYDRAMINE 50 MG, RANITIDINE INJECTION 50 MG... IVPB ONE (09:30)
[2019-07-17] MEDS ORDERED: PACLITAXEL 90 MG in SODIUM CHLORIDE 250 ML IVPB ONE (10:00)
[2019-07-17 10:13] LABS: BASO % 0.3 % (0-2.0); EOS % 0.5 % (0-4.5); HEMATOCRIT 31.9 % (32.4-45.2); HEMOGLOBIN 10.9 GM/dL (10.7-15.3); LYMPH % 18.2 % (8-40); MCH 31.5 pg (25.7-33.7); MCHC 34.1 g/dl (32.0-36.0); MEAN CELL VOLUME 92.5 fl (80-96); MEAN PLT VOLUME 8.6 fl (7.5-11.1); MONO % 10.2 % (3.8-10.2); NEUT % 70.8 % (42.8-82.8); PLATELET COUNT 125 K/MM3 (134-434); RBC 3.44 M/mm3 (3.60-5.2); RDW 14.7 % (11.6-15.6); WHITE BLOOD COUNT 3.6 K/mm3 (4.0-10.0)
[2019-07-17 10:58] LABS: ALBUMIN 3.5 g/dl (3.4-5.0); BILIRUBIN,TOTAL 0.6 mg/dL (0.2-1); BLOOD UREA NITROGEN 33.5 mg/dL (7-18); CALCIUM 8.5 mg/dL (8.5-10.1); CREATININE 1.3 mg/dL (0.55-1.3); POTASSIUM 4.1 mmol/L (3.5-5.1); TOT PROT 6.1 g/dl (6.4-8.2)
[2019-07-17] MEDS ORDERED: SODIUM CHLORIDE IVPB ONE ×2 (11:00→13:00)
[2019-07-17] MEDS ORDERED: CARBOPLATIN IVPB ONE ×2 (11:00→13:00)
[2019-07-17 16:11] VITALS: TEMP 98.2
[2019-07-17 16:13] VITALS: BP 103/58; PULSE 91
== END 2019-07-17 15:40 | disposition home or self-care (01) ==
LOC: JONCCHEMO 07:15 → J7W 10:54 → JONCCHEMO 15:40
PROVIDERS: ATTEND Internal Medicine Hematology & Oncology
DX: Z51.11 Encounter for antineoplastic chemotherapy (principal); C34.90 Malignant neoplasm of unspecified part of unspecified bronchus or lung; J44.9 Chronic obstructive pulmonary disease, unspecified; Z87.891 Personal history of nicotine dependence
CPT/HCPCS: 36415; 80053; 83735; 85025; 96361; 96367; 96375; 96413; 96417; J2469

== ENCOUNTER 2019-07-24 05:33 | Day surgery (SDC) | payer OTHER ==
[2019-07-24] MEDS ORDERED: SODIUM CHLORIDE 250 ML IV ONE ×2 (09:00→11:30)
[2019-07-24] MEDS ORDERED: DEXAMETHASONE SODIUM PHOSPHATE 10 MG, DIPHENHYDRAMINE 50 MG, RANITIDINE INJECTION 50 MG... IVPB ONE (09:30)
[2019-07-24] MEDS ORDERED: PALONOSETRON HCL 0.25 MG/5 ML VIAL IVPUSH ONE (09:30)
[2019-07-24] MEDS ORDERED: PACLITAXEL 90 MG in SODIUM CHLORIDE 250 ML IVPB ONE (10:00)
[2019-07-24 10:29] LABS: BASO % 0.3 % (0-2.0); EOS % 0.8 % (0-4.5); HEMATOCRIT 27.3 % (32.4-45.2); HEMOGLOBIN 9.5 GM/dL (10.7-15.3); LYMPH % 20.4 % (8-40); MCH 32.1 pg (25.7-33.7); MCHC 34.9 g/dl (32.0-36.0); MEAN CELL VOLUME 92.1 fl (80-96); MEAN PLT VOLUME 8.2 fl (7.5-11.1); MONO % 10.5 % (3.8-10.2); PLATELET COUNT 179 K/MM3 (134-434); RBC 2.96 M/mm3 (3.60-5.2); RDW 15.3 % (11.6-15.6); WHITE BLOOD COUNT 2.2 K/mm3 (4.0-10.0)
[2019-07-24 10:57] LABS: ALBUMIN 3.5 g/dl (3.4-5.0); BILIRUBIN,TOTAL 0.7 mg/dL (0.2-1); BLOOD UREA NITROGEN 17.7 mg/dL (7-18); MAGNESIUM 2.1 mg/dL (1.8-2.4); POTASSIUM 4.2 mmol/L (3.5-5.1); TOT PROT 6.2 g/dl (6.4-8.2)
[2019-07-24] MEDS ORDERED: CARBOPLATIN IVPB ONE (11:00)
[2019-07-24] MEDS ORDERED: SODIUM CHLORIDE IVPB ONE (11:00)
[2019-07-24] MEDS ORDERED: SODIUM CHLORIDE 1,000 ML IV STA (11:13)
[2019-07-24 16:39] VITALS: TEMP 98.6
[2019-07-24 16:52] VITALS: BP 108/58; PULSE 65
== END 2019-07-24 16:53 | disposition home or self-care (01) ==
LOC: JONCCHEMO 05:33 → J7W 11:33 → JONCCHEMO 16:53
PROVIDERS: ATTEND Internal Medicine Hematology & Oncology
DX: Z51.11 Encounter for antineoplastic chemotherapy (principal); C39.0 Malignant neoplasm of upper respiratory tract, part unspecified; J44.9 Chronic obstructive pulmonary disease, unspecified; Z87.891 Personal history of nicotine dependence
CPT/HCPCS: 36415; 80053; 83735; 85025; 96361; 96367; 96375; 96413; 96417; J2469; J7030

== ENCOUNTER 2019-07-29 05:18 | Day surgery (SDC) | payer OTHER ==
[2019-07-29] MEDS ORDERED: TBO-FILGRASTIM 480 MCG/0.8 ML DISP.SYRIN SQ ONE (09:45)
[2019-07-29] MEDS ORDERED: POTASSIUM CHLORIDE 20 MEQ, MAGNESIUM SULFATE 1 GM in DEXTROSE 5%-NORMAL SALINE 1,000 ML IVPB ONE (09:45)
[2019-07-29] MEDS ORDERED: D5-NS + 20 MEQ KCL - 20 MEQ/1,000 ML INFUS.BAG IV ONE (10:00)
[2019-07-29] MEDS ORDERED: MAGNESIUM SULF 50% (8.12 MEQ/2 ML-1 GM VIAL) IVPB ONE (10:00)
[2019-07-29] MEDS ORDERED: PORTA CATH FLUSH 10 ML IVPUSH ONE (11:21)
[2019-07-29 17:09] VITALS: BP 134/62; PULSE 95
[2019-07-29 17:10] VITALS: TEMP 98.1
== END 2019-07-29 14:59 | disposition home or self-care (01) ==
LOC: JCHEMO 05:18 → JONCNONCHE 05:18 → J7W 09:23 → JCHEMO 14:59
PROVIDERS: ATTEND Internal Medicine Hematology & Oncology
PROC: 3E033GC Introduction of Other Therapeutic Substance into Peripheral Vein, Percutaneous Approach (ICD-10-PCS; principal; 2019-07-29)
PROC: 3E0337Z Introduction of Electrolytic and Water Balance Substance into Peripheral Vein, Percutaneous Approach (ICD-10-PCS; 2019-07-29)
PROC: 3E013GC Introduction of Other Therapeutic Substance into Subcutaneous Tissue, Percutaneous Approach (ICD-10-PCS; 2019-07-29)
DX: Z76.89 Persons encountering health services in other specified circumstances (principal); C34.90 Malignant neoplasm of unspecified part of unspecified bronchus or lung; I10 Essential (primary) hypertension; E78.00 Pure hypercholesterolemia, unspecified; J44.9 Chronic obstructive pulmonary disease, unspecified
CPT/HCPCS: 96361; 96372; 96374; J1447

== ENCOUNTER 2019-08-01 05:31 | Day surgery (SDC) | payer OTHER ==
[2019-08-01] MEDS ORDERED: DEXTROSE 5%-NORMAL SALINE 1,000 ML IV SCH (10:15)
[2019-08-01 10:45] LABS: HEMATOCRIT 23.8 % (32.4-45.2); HEMOGLOBIN 8.6 GM/dL (10.7-15.3); MCH 34.2 pg (25.7-33.7); MEAN PLT VOLUME 8.4 fl (7.5-11.1); PLATELET COUNT 246 K/MM3 (134-434); RBC 2.51 M/mm3 (3.60-5.2); RDW 17.7 % (11.6-15.6); WHITE BLOOD COUNT 5.9 K/mm3 (4.0-10.0)
[2019-08-01 13:09] LABS: ALBUMIN 3.5 g/dl (3.4-5.0); BILIRUBIN,TOTAL 0.5 mg/dL (0.2-1); BLOOD UREA NITROGEN 12.7 mg/dL (7-18); CALCIUM 9.1 mg/dL (8.5-10.1); CREATININE 1.1 mg/dL (0.55-1.3); POTASSIUM 3.7 mmol/L (3.5-5.1); TOT PROT 6.2 g/dl (6.4-8.2)
[2019-08-01 14:24] VITALS: TEMP 98.3
[2019-08-01 14:25] VITALS: BP 119/73; PULSE 98
== END 2019-08-01 14:26 | disposition home or self-care (01) ==
LOC: JONCNONCHE 05:31 → JONCCHEMO 05:31 → J7W 09:53 → JONCNONCHE 14:26
PROVIDERS: ATTEND Internal Medicine Hematology & Oncology
PROC: 3E0437Z Introduction of Electrolytic and Water Balance Substance into Central Vein, Percutaneous Approach (ICD-10-PCS; principal; 2019-08-01)
DX: C34.90 Malignant neoplasm of unspecified part of unspecified bronchus or lung (principal); Z76.89 Persons encountering health services in other specified circumstances
CPT/HCPCS: 36415; 80053; 85027; 96360; 96361

== ENCOUNTER 2019-09-16 10:17 | Day surgery (SDC) | payer OTHER ==
[2019-09-16 09:01] LABS: BASO % 0.3 % (0-2.0); EOS % 1.8 % (0-4.5); HEMATOCRIT 37.7 % (32.4-45.2); HEMOGLOBIN 12.8 GM/dL (10.7-15.3); LYMPH % 14.4 % (8-40); MCH 34.7 pg (25.7-33.7); MCHC 33.9 g/dl (32.0-36.0); MEAN CELL VOLUME 102.3 fl (80-96); MEAN PLT VOLUME 8.4 fl (7.5-11.1); MONO % 9.2 % (3.8-10.2); NEUT % 74.3 % (42.8-82.8); PLATELET COUNT 196 K/MM3 (134-434); RBC 3.69 M/mm3 (3.60-5.2); RDW 15.5 % (11.6-15.6); WHITE BLOOD COUNT 6.3 K/mm3 (4.0-10.0)
[2019-09-16 09:20] LABS: ALBUMIN 4.1 g/dl (3.4-5.0); BILIRUBIN,TOTAL 0.6 mg/dL (0.2-1); BLOOD UREA NITROGEN 27.8 mg/dL (7-18); CALCIUM 10.1 mg/dL (8.5-10.1); CREATININE 1.3 mg/dL (0.55-1.3); POTASSIUM 3.8 mmol/L (3.5-5.1); TOT PROT 7.1 g/dl (6.4-8.2)
[2019-09-16] MEDS ORDERED: SODIUM CHLORIDE 0.45%/POT 20 MEQ/1,000 ML INFUS.BAG IV ONE (10:30)
[2019-09-16 14:12] VITALS: TEMP 97.9
[2019-09-16 14:13] VITALS: BP 139/72; PULSE 98
== END 2019-09-16 13:00 | disposition home or self-care (01) ==
LOC: JONCNONCHE 10:17 → J7W 10:20 → JONCNONCHE 13:00
PROVIDERS: ATTEND Internal Medicine Hematology & Oncology
PROC: 3E0437Z Introduction of Electrolytic and Water Balance Substance into Central Vein, Percutaneous Approach (ICD-10-PCS; principal; 2019-09-16)
DX: Z76.89 Persons encountering health services in other specified circumstances (principal); C34.90 Malignant neoplasm of unspecified part of unspecified bronchus or lung; I10 Essential (primary) hypertension; E78.00 Pure hypercholesterolemia, unspecified; J44.9 Chronic obstructive pulmonary disease, unspecified
CPT/HCPCS: 36415; 80053; 83735; 85025; 96360; 96361; J3480

== ENCOUNTER 2019-11-11 10:15 | Day surgery (SDC) | payer OTHER ==
[2019-11-11 09:04] LABS: BASO % 0.4 % (0-2.0); EOS % 1.2 % (0-4.5); HEMATOCRIT 41.9 % (32.4-45.2); HEMOGLOBIN 14.1 GM/dL (10.7-15.3); LYMPH % 10.7 % (8-40); MCH 32.8 pg (25.7-33.7); MCHC 33.7 g/dl (32.0-36.0); MEAN CELL VOLUME 97.4 fl (80-96); MEAN PLT VOLUME 8.6 fl (7.5-11.1); NEUT % 77.7 % (42.8-82.8); PLATELET COUNT 234 K/MM3 (134-434); RDW 13.4 % (11.6-15.6); WHITE BLOOD COUNT 8.9 K/mm3 (4.0-10.0)
[2019-11-11 09:37] LABS: ALBUMIN 3.9 g/dl (3.4-5.0); BILIRUBIN,TOTAL 0.3 mg/dL (0.2-1); BLOOD UREA NITROGEN 21.6 mg/dL (7-18); CALCIUM 9.6 mg/dL (8.5-10.1); CREATININE 1.3 mg/dL (0.55-1.3); MAGNESIUM 2.3 mg/dL (1.8-2.4); POTASSIUM 3.9 mmol/L (3.5-5.1); TOT PROT 7.1 g/dl (6.4-8.2)
[2019-11-11] MEDS ORDERED: D5-1/2NS+20 MEQ KCL - 20 MEQ/1,000 ML INFUS.BAG IV SCH (11:00)
[2019-11-11 15:02] VITALS: BP 107/60; PULSE 76; TEMP 98.2
== END 2019-11-11 12:10 | disposition home or self-care (01) ==
LOC: EDSTATUS 10:15 → JONCNONCHE 10:15 → J7W 10:51 → JONCNONCHE 12:10
PROVIDERS: ATTEND Internal Medicine Hematology & Oncology
DX: Z76.89 Persons encountering health services in other specified circumstances (principal); C34.90 Malignant neoplasm of unspecified part of unspecified bronchus or lung
CPT/HCPCS: 36415; 80053; 83735; 85025; 96360

== ENCOUNTER 2020-04-22 07:19 | Day surgery (SDC) | payer OTHER ==
[2020-04-22 09:11] LABS: BASO % 0.3 % (0-2.0); EOS % 1.4 % (0-4.5); HEMATOCRIT 39.6 % (32.4-45.2); HEMOGLOBIN 13.3 GM/dL (10.7-15.3); LYMPH % 13.7 % (8-40); MCHC 33.6 g/dl (32.0-36.0); MEAN CELL VOLUME 95.2 fl (80-96); MEAN PLT VOLUME 8.9 fl (7.5-11.1); MONO % 11.7 % (3.8-10.2); NEUT % 72.9 % (42.8-82.8); PLATELET COUNT 199 K/MM3 (134-434); RBC 4.16 M/mm3 (3.60-5.2); RDW 14.7 % (11.6-15.6); WHITE BLOOD COUNT 9.6 K/mm3 (4.0-10.0)
[2020-04-22] MEDS ORDERED: DEXAMETHASONE SODIUM PHOSPHATE 6 MG in SODIUM CHLORIDE 50 ML IVPB ONE (09:30)
[2020-04-22] MEDS ORDERED: DURVALUMAB 1,500 MG in SODIUM CHLORIDE 100 ML IV ONE (10:00)
[2020-04-22 10:13] LABS: BLOOD UREA NITROGEN 30.7 mg/dL (7-18); CALCIUM 8.9 mg/dL (8.5-10.1); CREATININE 1.1 mg/dL (0.55-1.3); MAGNESIUM 2.6 mg/dL (1.8-2.4); POTASSIUM 3.7 mmol/L (3.5-5.1)
[2020-04-22 10:15] LABS: ALBUMIN 3.8 g/dl (3.4-5.0); BILIRUBIN,DIRECT 0.1 mg/dL (0.0-0.2); BILIRUBIN,TOTAL 0.6 mg/dL (0.2-1); TOT PROT 6.8 g/dl (6.4-8.2)
[2020-04-22] MEDS ORDERED: SODIUM CHLORIDE 250 ML IV ONE (11:00)
[2020-04-22 14:29] VITALS: TEMP 98.5
[2020-04-22 14:31] VITALS: BP 117/58; PULSE 103
== END 2020-04-22 12:20 | disposition home or self-care (01) ==
LOC: JONCCHEMO 07:19
PROVIDERS: ATTEND Internal Medicine Hematology & Oncology
DX: Z51.11 Encounter for antineoplastic chemotherapy (principal); C34.90 Malignant neoplasm of unspecified part of unspecified bronchus or lung
CPT/HCPCS: 36415; 80048; 80076; 82378; 83735; 85025; 96361; 96375; 96413; J9173

== ENCOUNTER 2020-05-18 07:29 | Day surgery (SDC) | payer OTHER ==
[2020-05-18] MEDS ORDERED: DEXAMETHASONE SODIUM PHOSPHATE 6 MG in SODIUM CHLORIDE 50 ML IVPB ONE (10:00)
[2020-05-18] MEDS ORDERED: SODIUM CHLORIDE 250 ML IV ONE (10:00)
[2020-05-18] MEDS ORDERED: DURVALUMAB 1,500 MG in SODIUM CHLORIDE 100 ML IV ONE (10:30)
[2020-05-18 10:41] LABS: BASO % 0.3 % (0-2.0); EOS % 1.3 % (0-4.5); HEMATOCRIT 37.4 % (32.4-45.2); HEMOGLOBIN 12.6 GM/dL (10.7-15.3); LYMPH % 10.3 % (8-40); MCH 31.7 pg (25.7-33.7); MCHC 33.6 g/dl (32.0-36.0); MEAN CELL VOLUME 94.2 fl (80-96); MEAN PLT VOLUME 9.1 fl (7.5-11.1); MONO % 10.7 % (3.8-10.2); NEUT % 77.4 % (42.8-82.8); PLATELET COUNT 189 K/MM3 (134-434); RBC 3.97 M/mm3 (3.60-5.2); RDW 14.6 % (11.6-15.6); WHITE BLOOD COUNT 8.2 K/mm3 (4.0-10.0)
[2020-05-18 11:16] LABS: ALBUMIN 3.9 g/dl (3.4-5.0); BILIRUBIN,DIRECT 0.1 mg/dL (0.0-0.2); BILIRUBIN,TOTAL 0.4 mg/dL (0.2-1); BLOOD UREA NITROGEN 23.9 mg/dL (7-18); CALCIUM 9.5 mg/dL (8.5-10.1); CREATININE 1.2 mg/dL (0.55-1.3); MAGNESIUM 2.2 mg/dL (1.8-2.4); POTASSIUM 3.6 mmol/L (3.5-5.1); TOT PROT 6.5 g/dl (6.4-8.2)
[2020-05-18 15:03] VITALS: TEMP 97.3
[2020-05-18 15:04] VITALS: BP 97/54; PULSE 72
== END 2020-05-18 13:50 | disposition home or self-care (01) ==
LOC: JONCCHEMO 07:29
PROVIDERS: ATTEND Internal Medicine Hematology & Oncology
DX: Z51.11 Encounter for antineoplastic chemotherapy (principal); C34.90 Malignant neoplasm of unspecified part of unspecified bronchus or lung
CPT/HCPCS: 36415; 80048; 80076; 82378; 83735; 84439; 84443; 85025; 96361; 96375; 96413; J9173

== ENCOUNTER 2020-06-15 06:14 | Day surgery (SDC) | payer OTHER ==
--- OUTSIDE RECORDS SUMMARY | 2020-06-15 06:18 | XMS ---
:1945 [address] [facility] Support Name Relationship Address Phone RE, RETIRED Unavailable Unavailable Unavailable RETIRED Unavailable Unavailable Unavailable RE Unavailable Unavailable Unavailable LAUREN OLSON FAMILY/OTHER [address] [place] [address] Re-disclosure Warning The records that you are about to access may contain information from federally- assisted alcohol or drug abuse programs. If such information is present, then the following federally mandated warning applies: This information has been disclosed to you from records protected by federal confidentiality rules (42 CFR part 2). The federal rules prohibit you from making any further disclosure of this information unless further disclosure is expressly permitted by the written consent of the person to whom it pertains or as otherwise permitted by 42 CFR part 2. A general authorization for the release of medical or other information is NOT sufficient for this purpose. The Federal rules restrict any use of the information to criminally investigate or prosecute any alcohol or drug abuse patient.The records that you are about to access may contain highly sensitive health information, the redisclosure of which is protected by Article 27-F of the [facility] Public Health law. If you continue you may haveaccess to information: Regarding HIV / AIDS; Provided by facilities licensed or operated by the [facility] Office of Mental Health; or Provided by the [facility] Office for People With Developmental Disabilities. If such information is present, then the following [facility] mandated warning applies: This information has been disclosed to you from confidential records which are protected by state law. State law prohibits you from making any further disclosure of this information without the specific written consent of the person to whom it pertains, or as otherwise permitted by law. Any unauthorized further disclosure in violation of state law may result in a fine or mcfp sentence or both. A general authorization for the release of medical or other information is NOT sufficient authorization for further disclosure. Encounters Encounter Providers Location Date Indications Data Source(s ) Outpatient 02/08/2019 ENLARGED LYMPH NODES [place] 09:45:00 AM EDT NOT DIABETIC [id number] ENLARGED LYMPH NODES NOT DIABETIC [id number] Insurance Providers Payer name Policy type Policy ID Covered Covered republican's Policy P jv / Coverage republican ID relationship to [place] [employer] type [place] [employer] [id number] SP [id number] MEDICARE AETNA [id number] SP [id number] MEDICARE AETNA [id number] SP [id number] MEDICARE AETNA [id number] SP [id number] MEDICARE AETNA MCR [id number] Problems, Conditions, and Diagnoses Code Display Name Description Problem Type Effective Dates Data Source(s) K80.20 Calculus of K80.20 Diagnosis 02/08/2019 [place] gallbladder without 09:45:00 AM EDT Hospital cholecystitis without obstruction 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
[2020-06-15 09:26] LABS: BASO % 0.2 % (0-2.0); EOS % 1.1 % (0-4.5); HEMATOCRIT 38.6 % (32.4-45.2); LYMPH % 5.9 % (8-40); MCH 31.7 pg (25.7-33.7); MCHC 33.6 g/dl (32.0-36.0); MEAN CELL VOLUME 94.3 fl (80-96); MEAN PLT VOLUME 8.4 fl (7.5-11.1); MONO % 6.9 % (3.8-10.2); NEUT % 85.9 % (42.8-82.8); PLATELET COUNT 200 K/MM3 (134-434); RBC 4.09 M/mm3 (3.60-5.2); RDW 14.7 % (11.6-15.6); WHITE BLOOD COUNT 10.5 K/mm3 (4.0-10.0)
[2020-06-15] MEDS ORDERED: DEXAMETHASONE SODIUM PHOSPHATE 6 MG in SODIUM CHLORIDE 50 ML IVPB ONE (09:30)
[2020-06-15] MEDS ORDERED: DURVALUMAB 1,500 MG in SODIUM CHLORIDE 100 ML IV ONE (10:00)
[2020-06-15 10:06] LABS: ALBUMIN 3.8 g/dl (3.4-5.0); BILIRUBIN,DIRECT 0.1 mg/dL (0.0-0.2); BILIRUBIN,TOTAL 0.5 mg/dL (0.2-1); CALCIUM 8.8 mg/dL (8.5-10.1); CREATININE 1.2 mg/dL (0.55-1.3); MAGNESIUM 1.9 mg/dL (1.8-2.4); TOT PROT 6.7 g/dl (6.4-8.2)
[2020-06-15 10:28] VITALS: BP 106/63; PULSE 75; TEMP 98.5
[2020-06-15] MEDS ORDERED: PORTA CATH FLUSH 10 ML IVPUSH ONE (10:53)
[2020-06-15] MEDS ORDERED: SODIUM CHLORIDE 250 ML IV ONE (11:00)
== END 2020-06-15 13:00 | disposition home or self-care (01) ==
LOC: JONCCHEMO 06:14
PROVIDERS: ATTEND Internal Medicine Hematology & Oncology
DX: Z51.11 Encounter for antineoplastic chemotherapy (principal); C34.90 Malignant neoplasm of unspecified part of unspecified bronchus or lung
CPT/HCPCS: 36415; 80048; 80076; 83735; 84439; 84443; 85025; 96361; 96375; 96413; J9173

== ENCOUNTER 2020-07-13 07:19 | Day surgery (SDC) | payer OTHER ==
--- OUTSIDE RECORDS SUMMARY | 2020-07-13 07:22 | XMS ---
:1945 Author Organization [facility] Support Name Relationship Address Phone RE, RETIRED Unavailable Unavailable Unavailable RETIRED Unavailable Unavailable Unavailable RE Unavailable Unavailable Unavailable LARUEN OLSON FAMILY/OTHER [address] [facility] [place] [address] Re-disclosure Warning The records that you are [...] is protected by Article 27-F of the [facility] Public Health law. If you continue you may haveaccess to information: Regarding HIV / AIDS; Provided by facilities licensed or operated by the [facility] Office of Mental Health; or Provided by the [facility] Office for People With Developmental Disabilities. If such information is present, then the following [facility] mandated warning applies: This information has [...] law may result in a fine or alf sentence or both. A general authorization for the release of medical or other information is NOT sufficient authorization for further disclosure. Insurance Providers Payer name Policy type Policy ID Covered Covered libertarian's Policy P jv / Coverage libertarian ID relationship to [place] Inf ormation type [place] AETNA [id number] SP [id number] MEDICARE AETNA [id number] SP [id number] MEDICARE AETNA [id number] SP [id number] MEDICARE AETNA [id number] SP [id number] MEDICARE AETNA MCR [id number] PT [id number]
[2020-07-13 08:36] LABS: BASO % 0.3 % (0-2.0); HEMATOCRIT 36.2 % (32.4-45.2); HEMOGLOBIN 12.8 GM/dL (10.7-15.3); LYMPH % 9.8 % (8-40); MCH 33.5 pg (25.7-33.7); MCHC 35.3 g/dl (32.0-36.0); MEAN CELL VOLUME 95.1 fl (80-96); MEAN PLT VOLUME 8.7 fl (7.5-11.1); MONO % 9.7 % (3.8-10.2); NEUT % 78.2 % (42.8-82.8); PLATELET COUNT 187 K/MM3 (134-434); RBC 3.81 M/mm3 (3.60-5.2); WHITE BLOOD COUNT 7.5 K/mm3 (4.0-10.0)
[2020-07-13 08:59] LABS: ALBUMIN 3.6 g/dl (3.4-5.0); BILIRUBIN,DIRECT 0.1 mg/dL (0.0-0.2); BILIRUBIN,TOTAL 0.4 mg/dL (0.2-1); BLOOD UREA NITROGEN 28.2 mg/dL (7-18); CALCIUM 9.2 mg/dL (8.5-10.1); CREATININE 1.1 mg/dL (0.55-1.3); MAGNESIUM 2.3 mg/dL (1.8-2.4); POTASSIUM 3.8 mmol/L (3.5-5.1); TOT PROT 6.4 g/dl (6.4-8.2)
[2020-07-13] MEDS ORDERED: DEXAMETHASONE SODIUM PHOSPHATE 6 MG in SODIUM CHLORIDE 50 ML IVPB ONE (10:00)
[2020-07-13] MEDS ORDERED: DURVALUMAB 1,500 MG in SODIUM CHLORIDE 100 ML IV ONE (10:30)
[2020-07-13] MEDS ORDERED: SODIUM CHLORIDE 250 ML IV ONE (11:30)
[2020-07-13 14:07] VITALS: BP 143/79; PULSE 73; TEMP 98
== END 2020-07-13 12:00 | disposition home or self-care (01) ==
LOC: JONCCHEMO 07:19
PROVIDERS: ATTEND Internal Medicine Hematology & Oncology
DX: Z51.11 Encounter for antineoplastic chemotherapy (principal); C34.90 Malignant neoplasm of unspecified part of unspecified bronchus or lung
CPT/HCPCS: 36415; 80048; 80076; 83735; 85025; 96375; 96413; J9173

== ENCOUNTER 2020-08-10 07:14 | Day surgery (SDC) | payer OTHER ==
[2020-08-10 09:17] LABS: BASO % 0.3 % (0-2.0); EOS % 2.4 % (0-4.5); HEMATOCRIT 36.7 % (32.4-45.2); HEMOGLOBIN 12.5 GM/dL (10.7-15.3); LYMPH % 9.5 % (8-40); MCH 32.4 pg (25.7-33.7); MCHC 33.9 g/dl (32.0-36.0); MEAN CELL VOLUME 95.5 fl (80-96); MEAN PLT VOLUME 9.2 fl (7.5-11.1); MONO % 11.3 % (3.8-10.2); NEUT % 76.5 % (42.8-82.8); PLATELET COUNT 172 K/MM3 (134-434); RBC 3.84 M/mm3 (3.60-5.2); RDW 14.3 % (11.6-15.6); WHITE BLOOD COUNT 6.1 K/mm3 (4.0-10.0)
[2020-08-10] MEDS ORDERED: DEXAMETHASONE SODIUM PHOSPHATE 6 MG in SODIUM CHLORIDE 50 ML IVPB ONE (09:30)
[2020-08-10 09:41] LABS: POTASSIUM 3.8 mmol/L (3.5-5.1)
[2020-08-10 09:44] LABS: ALBUMIN 3.7 g/dl (3.4-5.0); CALCIUM 9.3 mg/dL (8.5-10.1)
[2020-08-10 09:45] LABS: BLOOD UREA NITROGEN 25.6 mg/dL (7-18); MAGNESIUM 2.3 mg/dL (1.8-2.4)
[2020-08-10 09:47] LABS: BILIRUBIN,DIRECT 0.2 mg/dL (0.0-0.2)
[2020-08-10 09:48] LABS: BILIRUBIN,TOTAL 0.4 mg/dL (0.2-1); TOT PROT 6.4 g/dl (6.4-8.2)
[2020-08-10] MEDS ORDERED: DURVALUMAB 1,500 MG in SODIUM CHLORIDE 100 ML IV ONE (10:00)
[2020-08-10] MEDS ORDERED: ALTEPLASE 2 MG VIAL CVP ONE (10:23)
[2020-08-10] MEDS ORDERED: SODIUM CHLORIDE 250 ML IV ONE (11:00)
[2020-08-10 15:29] VITALS: PULSE 77; TEMP 98.3
[2020-08-10 15:31] VITALS: BP 124/68
== END 2020-08-10 13:10 | disposition home or self-care (01) ==
LOC: JONCCHEMO 07:14
PROVIDERS: ATTEND Internal Medicine Hematology & Oncology
DX: Z51.11 Encounter for antineoplastic chemotherapy (principal); C34.90 Malignant neoplasm of unspecified part of unspecified bronchus or lung
CPT/HCPCS: 36415; 80048; 80076; 82150; 83690; 83735; 84439; 84443; 85025; 96361; 96375; 96413; J2997; J9173

== ENCOUNTER 2020-10-27 08:08 | Day surgery (SDC) | payer OTHER ==
[2020-10-27 09:08] LABS: BASO % 0.2 % (0-2.0); HEMATOCRIT 38.2 % (32.4-45.2); HEMOGLOBIN 13.1 GM/dL (10.7-15.3); LYMPH % 9.2 % (8-40); MCH 33.3 pg (25.7-33.7); MCHC 34.4 g/dl (32.0-36.0); MEAN CELL VOLUME 96.8 fl (80-96); MONO % 11.6 % (3.8-10.2); PLATELET COUNT 216 K/MM3 (134-434); RBC 3.95 M/mm3 (3.60-5.2); RDW 15.8 % (11.6-15.6); WHITE BLOOD COUNT 7.6 K/mm3 (4.0-10.0)
[2020-10-27 09:46] LABS: POTASSIUM 3.9 mmol/L (3.5-5.1)
[2020-10-27 09:48] LABS: MAGNESIUM 2.5 mg/dL (1.8-2.4)
[2020-10-27 09:50] LABS: ALBUMIN 3.8 g/dl (3.4-5.0); BLOOD UREA NITROGEN 29.7 mg/dL (7-18); CALCIUM 9.3 mg/dL (8.5-10.1)
[2020-10-27 09:52] LABS: BILIRUBIN,DIRECT 0.1 mg/dL (0.0-0.2); CREATININE 1.2 mg/dL (0.55-1.3)
[2020-10-27 09:53] LABS: TOT PROT 6.5 g/dl (6.4-8.2)
[2020-10-27 09:55] LABS: BILIRUBIN,TOTAL 0.5 mg/dL (0.2-1)
[2020-10-27] MEDS ORDERED: SODIUM CHLORIDE 250 ML IV ONE (10:00)
[2020-10-27] MEDS ORDERED: DEXAMETHASONE SODIUM PHOSPHATE 6 MG in SODIUM CHLORIDE 50 ML IVPB ONE (10:00)
[2020-10-27] MEDS ORDERED: DURVALUMAB 1,500 MG in SODIUM CHLORIDE 100 ML IV ONE (10:30)
[2020-10-27] MEDS ORDERED: PORTA CATH FLUSH 10 ML IVPUSH ONE (14:13)
[2020-10-27 14:14] VITALS: BP 106/63; PULSE 68; TEMP 98.4
== END 2020-10-27 11:50 | disposition home or self-care (01) ==
LOC: JONCCHEMO 08:08
PROVIDERS: ATTEND Internal Medicine Hematology & Oncology
DX: Z51.11 Encounter for antineoplastic chemotherapy (principal); C34.90 Malignant neoplasm of unspecified part of unspecified bronchus or lung
CPT/HCPCS: 36415; 80048; 80076; 82150; 82533; 83690; 83735; 84439; 84443; 85025; 96361; 96375; 96413; J9173

== ENCOUNTER 2020-11-23 07:16 | Day surgery (SDC) | payer OTHER ==
[2020-11-23] MEDS: DEXAMETHASONE SODIUM PHOSPHATE 6 MG in SODIUM CHLORIDE 50 ML IVPB ONE ×2 (08:45→11:16)
[2020-11-23 09:36] LABS: BASO % 0.3 % (0-2.0); EOS % 1.5 % (0-4.5); HEMATOCRIT 38.9 % (32.4-45.2); HEMOGLOBIN 13.5 GM/dL (10.7-15.3); LYMPH % 9.4 % (8-40); MCH 33.4 pg (25.7-33.7); MCHC 34.7 g/dl (32.0-36.0); MEAN CELL VOLUME 96.3 fl (80-96); MEAN PLT VOLUME 8.9 fl (7.5-11.1); MONO % 10.2 % (3.8-10.2); NEUT % 78.6 % (42.8-82.8); PLATELET COUNT 208 K/MM3 (134-434); RBC 4.03 M/mm3 (3.60-5.2); RDW 14.8 % (11.6-15.6); WHITE BLOOD COUNT 7.5 K/mm3 (4.0-10.0)
[2020-11-23 09:50] LABS: CALCIUM 9.5 mg/dL (8.5-10.1)
[2020-11-23] MEDS ORDERED: DURVALUMAB 1,500 MG in SODIUM CHLORIDE 100 ML IV ONE (10:00)
[2020-11-23 10:06] LABS: POTASSIUM 3.9 mmol/L (3.5-5.1)
[2020-11-23 10:07] LABS: ALBUMIN 3.8 g/dl (3.4-5.0); BILIRUBIN,DIRECT 0.1 mg/dL (0.0-0.2); BILIRUBIN,TOTAL 0.5 mg/dL (0.2-1); BLOOD UREA NITROGEN 28.3 mg/dL (7-18); CREATININE 1.1 mg/dL (0.55-1.3); MAGNESIUM 2.3 mg/dL (1.8-2.4); TOT PROT 6.7 g/dl (6.4-8.2)
[2020-11-23] MEDS ORDERED: SODIUM CHLORIDE 250 ML IV ONE (11:00)
[2020-11-23 15:22] VITALS: BP 98/48; PULSE 75; TEMP 97.6
== END 2020-11-23 13:00 | disposition home or self-care (01) ==
LOC: JONCCHEMO 07:16
PROVIDERS: ATTEND Internal Medicine Hematology & Oncology
DX: Z51.11 Encounter for antineoplastic chemotherapy (principal); C34.90 Malignant neoplasm of unspecified part of unspecified bronchus or lung
CPT/HCPCS: 36415; 80048; 80076; 82150; 82378; 83690; 83735; 84439; 84443; 85025; 96361; 96375; 96413; J9173

== ENCOUNTER 2022-01-31 04:28 | Day surgery (SDC) | payer OTHER ==
[2022-01-30 11:14] VITALS: BMI 26.2
[2022-01-31] MEDS ORDERED: BUPIVACAINE HCL/PF 0.5% (5MG/ML) 10 ML VIAL ONE (07:26)
[2022-01-31] MEDS ORDERED: TRIAMCINOLONE ACET 40MG/1ML VIAL ONE (07:26)
[2022-01-31] MEDS ORDERED: BUPIVACAINE HCL/PF 0.75% 10 ML VIAL ONE (07:26)
[2022-01-31] MEDS ORDERED: LIDOCAINE HCL/PF 1% SDV 5ML VIAL ONE (07:40)
[2022-01-31] MEDS ORDERED: LIDOCAINE HCL 1% PRESERVATIVE FREE - 30ML VIAL IJ ONE (11:51)
[2022-01-31] MEDS ORDERED: DEXAMETHASONE SOD PHOSPHATE 10 MG/1 ML VIAL IVPUSH ONE (11:52)
[2022-01-31] MEDS ORDERED: IOHEXOL 180 MG/1 ML ML IJ ONE (11:52)
[2022-01-31 14:17] VITALS: TEMP 98
[2022-01-31 14:20] VITALS: BP 129/73; PULSE 68
== END 2022-01-31 12:30 | disposition home or self-care (01) ==
LOC: JASU-SURG 04:28
PROVIDERS: ATTEND Pain Medicine Pain Medicine
PROC: 3E0R33Z Introduction of Anti-inflammatory into Spinal Canal, Percutaneous Approach (ICD-10-PCS; 2022-01-31)
PROC: 3E0R3BZ Introduction of Anesthetic Agent into Spinal Canal, Percutaneous Approach (ICD-10-PCS; principal; 2022-01-31 12:00)
DX: M54.14 Radiculopathy, thoracic region (principal); I10 Essential (primary) hypertension
CPT/HCPCS: 76000-TC-FY; J1100

== ENCOUNTER 2022-04-19 04:30 | Day surgery (SDC) | payer OTHER ==
[2022-04-19 07:08] VITALS: BMI 34.2
[2022-04-19 07:21] VITALS: TEMP 98.3
[2022-04-19 09:05] VITALS: BP 145/71; PULSE 57
== END 2022-04-19 11:32 | disposition home or self-care (01) ==
LOC: JASU-ENDO 04:30
PROVIDERS: ATTEND Internal Medicine Gastroenterology
PROC: 0DBL8ZX Excision of Transverse Colon, Via Natural or Artificial Opening Endoscopic, Diagnostic (ICD-10-PCS; principal; 2022-04-19 08:00)
DX: Z12.11 Encounter for screening for malignant neoplasm of colon (principal); Z85.038 Personal history of other malignant neoplasm of large intestine; K57.30 Diverticulosis of large intestine without perforation or abscess without bleeding; K64.8 Other hemorrhoids; Z98.0 Intestinal bypass and anastomosis status
CPT/HCPCS: 88305-TC

== ENCOUNTER 2023-09-11 13:01 | Emergency (ER) | payer OTHER ==
[2023-09-11 13:30] VITALS: RESP 17; BMI 22.6
[2023-09-11 14:56] LABS: BASO % 0.4 % (0-2.0); EOS % 0.9 % (0-4.5); HEMATOCRIT 38.1 % (32.4-45.2); HEMOGLOBIN 12.8 GM/dL (10.7-15.3); LYMPH % 5.4 % (8-40); MCH 31.3 pg (25.7-33.7); MCHC 33.7 g/dl (32.0-36.0); MEAN CELL VOLUME 92.8 fl (80-96); MEAN PLT VOLUME 8.6 fl (7.5-11.1); MONO % 8.3 % (3.8-10.2); PLATELET COUNT 192 10^3/uL (134-434); RDW 14.3 % (11.6-15.6)
[2023-09-11 15:21] LABS: POTASSIUM 4.3 mmol/L (3.5-5.1)
[2023-09-11 15:23] LABS: BLOOD UREA NITROGEN 25.2 mg/dL (7-18); CALCIUM 9.2 mg/dL (8.5-10.1)
[2023-09-11 15:24] LABS: ALBUMIN 3.6 g/dl (3.4-5.0)
[2023-09-11 15:27] LABS: CREATININE 1.4 mg/dL (0.55-1.3)
[2023-09-11 15:28] LABS: BILIRUBIN,TOTAL 0.6 mg/dL (0.2-1); TOT PROT 6.3 g/dl (6.4-8.2)
[2023-09-11] MEDS ORDERED: SODIUM CHLORIDE 0.9% 500 ML INFUS.BAG IV ONE (16:47)
[2023-09-11 18:47] LABS: BASO % 0.2 % (0-2.0); EOS % 1.2 % (0-4.5); HEMATOCRIT 36.4 % (32.4-45.2); HEMOGLOBIN 12.4 GM/dL (10.7-15.3); LYMPH % 5.9 % (8-40); MCH 31.7 pg (25.7-33.7); MCHC 34.1 g/dl (32.0-36.0); MEAN CELL VOLUME 92.9 fl (80-96); MEAN PLT VOLUME 9.3 fl (7.5-11.1); MONO % 7.3 % (3.8-10.2); NEUT % 85.4 % (42.8-82.8); PLATELET COUNT 185 10^3/uL (134-434); RBC 3.92 M/mm3 (3.60-5.2); RDW 14.4 % (11.6-15.6); WHITE BLOOD COUNT 8.2 K/mm3 (4.0-10.0)
[2023-09-11 19:28] VITALS: BP 120/61; PULSE 81; TEMP 97.6
== END 2023-09-11 19:30 | disposition home or self-care (01) ==
LOC: JER 13:01
DX: K62.5 Hemorrhage of anus and rectum (principal); K59.00 Constipation, unspecified
CPT/HCPCS: 36415; 74177-TC; 80053; 82272; 85025; 86850; 86900; 86901; 99285-25; Q9967

== ENCOUNTER 2023-09-20 13:16 | Emergency (ER) | payer OTHER ==
[2023-09-20 13:22] VITALS: BMI 21.9
[2023-09-20] MEDS ORDERED: SODIUM CHLORIDE 0.9% 500 ML INFUS.BAG IV ONE (13:48)
[2023-09-20] MEDS ORDERED: FAMOTIDINE 20 MG/50 ML IVPB 20 MG/50 ML MG IVPB ONE (13:48)
[2023-09-20] MEDS ORDERED: ACETAMINOPHEN 1000 MG/100 ML BAG IVPB ONE (13:48)
[2023-09-20] MEDS ORDERED: ACETAMINOPHEN INJECTION 100 ML IVPB ONE (14:18)
[2023-09-20] MEDS ORDERED: FAMOTIDINE 10 MG/ML VIAL IVPB ONE (14:18)
[2023-09-20 14:42] LABS: HEMATOCRIT 39.5 % (32.4-45.2); HEMOGLOBIN 13.2 GM/dL (10.7-15.3); MCH 31.4 pg (25.7-33.7); MCHC 33.4 g/dl (32.0-36.0); MEAN CELL VOLUME 93.9 fl (80-96); MEAN PLT VOLUME 8.7 fl (7.5-11.1); PLATELET COUNT 214 10^3/uL (134-434); RDW 14.2 % (11.6-15.6); WHITE BLOOD COUNT 20.2 K/mm3 (4.0-10.0)
[2023-09-20 14:43] LABS: VENOUS BASE EXCESS -0.2 mmol/L (-2-2); VENOUS O2 SATURATION 33.7 % (70-80); VENOUS PCO2 44.7 mmHg (38-52); VENOUS PH 7.371 (7.310-7.410)
[2023-09-20 15:12] LABS: ANISOCYTOSIS 0; HELMET CELLS 0; HOWELL-JOLLY BODIES 0; MACROCYTOSIS 0; OVALOCYTE 0; ROULEAU 0; SICKELED CELLS 0; TARGET CELLS 0; TEAR DROP CELLS 0; TOXIC GRANULATION 0
[2023-09-20 15:13] LABS: POTASSIUM 4.1 mmol/L (3.5-5.1)
[2023-09-20 15:17] LABS: ALBUMIN 3.2 g/dl (3.4-5.0); BLOOD UREA NITROGEN 28.9 mg/dL (7-18); CALCIUM 8.8 mg/dL (8.5-10.1)
[2023-09-20 15:20] LABS: CREATININE 1.5 mg/dL (0.55-1.3)
[2023-09-20 15:22] LABS: BILIRUBIN,TOTAL 0.9 mg/dL (0.2-1); TOT PROT 5.8 g/dl (6.4-8.2)
[2023-09-20] MEDS ORDERED: LACTATED RINGERS SOLUTION 1,000 ML/1,000 ML INFUS.BAG IV SCH ×2 (15:30→18:30)
[2023-09-20 15:57] VITALS: BP 121/56; PULSE 61; RESP 18; TEMP 98.1
[2023-09-20] MEDS ORDERED: CIPROFLOXACIN 400 MG/D5W 400 MG/200 ML IVPB IVPB ONE (20:30)
[2023-09-20 20:50] LABS: URINE APPEARANCE CLEAR; URINE BILIRUBIN NEGATIVE (NEGATIVE); URINE COLOR YELLOW; URINE GLUCOSE (UA) NEGATIVE (NEGATIVE); URINE KETONE NEGATIVE (NEGATIVE); URINE LEUK ESTERASE NEGATIVE (NEGATIVE); URINE NITRITE NEGATIVE (NEGATIVE); URINE PROTEIN NEGATIVE (NEGATIVE); URINE UROBILINOGEN 0.2 mg/dL (0.2-1.0)
== END 2023-09-20 22:00 | disposition home or self-care (01) ==
LOC: JER 13:16
PROC: 3E03329 Introduction of Other Anti-infective into Peripheral Vein, Percutaneous Approach (ICD-10-PCS; principal; 2023-09-20)
PROC: 3E033GC Introduction of Other Therapeutic Substance into Peripheral Vein, Percutaneous Approach (ICD-10-PCS; 2023-09-20)
PROC: 3E03329 Introduction of Other Anti-infective into Peripheral Vein, Percutaneous Approach (ICD-10-PCS; 2023-09-20)
PROC: 3E033NZ Introduction of Analgesics, Hypnotics, Sedatives into Peripheral Vein, Percutaneous Approach (ICD-10-PCS; 2023-09-20)
DX: R10.32 Left lower quadrant pain (principal); K52.9 Noninfective gastroenteritis and colitis, unspecified; R11.10 Vomiting, unspecified
CPT/HCPCS: 36415; 71045-TC-FY; 74177-TC; 76705-TC; 80053; 81003; 82803; 83605; 83690; 83735; 84443; 85025; 86850; 86900; 86901; 87086; 87186; 93005; 93010; 99285-25; Q9967

== ENCOUNTER 2023-09-27 08:16 | Emergency (ER) | payer OTHER ==
[2023-09-27 08:23] VITALS: RESP 18; TEMP 98.3; BMI 21.9
[2023-09-27 09:57] VITALS: BP 127/71; PULSE 103
== END 2023-09-27 09:57 | disposition home or self-care (01) ==
LOC: JER 08:16
DX: T24.111A Burn of first degree of right thigh, initial encounter (principal); T31.0 Burns involving less than 10% of body surface; X11.8XXA Contact with other hot tap-water, initial encounter; Y92.9 Unspecified place or not applicable
CPT/HCPCS: 99283-25

== ENCOUNTER 2024-01-18 04:47 | Day surgery (SDC) | payer OTHER ==
[2024-01-16 07:58] VITALS: BMI 20.9
[2024-01-18 08:23] VITALS: BP 121/57; RESP 18; TEMP 97
[2024-01-18 08:38] VITALS: PULSE 69
== END 2024-01-18 11:21 | disposition home or self-care (01) ==
LOC: JASU-ENDO 04:47
PROVIDERS: ATTEND Internal Medicine Gastroenterology
PROC: 0DBL8ZX Excision of Transverse Colon, Via Natural or Artificial Opening Endoscopic, Diagnostic (ICD-10-PCS; 2024-01-18)
PROC: 0DBM8ZX Excision of Descending Colon, Via Natural or Artificial Opening Endoscopic, Diagnostic (ICD-10-PCS; principal; 2024-01-18 09:00)
DX: Z12.11 Encounter for screening for malignant neoplasm of colon (principal); D12.4 Benign neoplasm of descending colon; K64.8 Other hemorrhoids; K57.30 Diverticulosis of large intestine without perforation or abscess without bleeding; Z86.010 Personal history of colon polyps; Z98.0 Intestinal bypass and anastomosis status; Z85.038 Personal history of other malignant neoplasm of large intestine; R93.3 Abnormal findings on diagnostic imaging of other parts of digestive tract; I10 Essential (primary) hypertension
CPT/HCPCS: 88305-TC